=== PATIENT | male | born 1990 ===

== ENCOUNTER 2021-08-03 11:03 | Outpatient (REF) | payer SELFPAY ==
[2021-08-03 11:33] LABS: Binax Now Covid-19 Ag Negative (Negative)
[2021-08-03 11:34] LABS: Binax Internal Control QC Valid; Binax Lot number: 9864
== END 2021-08-03 11:04 | disposition home or self-care (01) ==
LOC: HO.LAB 11:03
PROVIDERS: Visit Provider Internal Medicine
DX: U07.1 COVID-19 (principal)
CPT/HCPCS: 36415; C9803

== ENCOUNTER 2022-11-05 08:03 | Outpatient (REF) | payer OTHER, SELFPAY ==
[2022-11-05 11:12] LABS: MANUAL DIFF FLAG NO
[2022-11-05 11:13] LABS: Appearance Urine Turbid; Color Urine Yellow; Glucose Urine UA Negative (Negative); Leukocyte Esterase Urine Negative (Negative); Nitrite Urine Negative (Negative); PH 5.5 (5.0-9.0); Specific Gravity - Urine 1.025 (1.005-1.025); Urine Blood Negative (Negative); Urine Ketones Negative (Negative); Urine Protein Negative (Neg-Trace)
[2022-11-05 11:43] LABS: Basophils Absolute Auto 0.1 X10*3/uL (0.0-0.2); Basophils Percent Auto 0.7 % (0-2); Eosinophils Absolute Auto 0.3 X10*3/uL (0.0-0.4); Eosinophils Percent Auto 3.3 % (0-4); Hematocrit 43.7 % (42.0-52.0); Hemoglobin 15.4 g/dl (14.0-18.0); Imm Gran Abs Auto 0.03 X10*3/uL (0.00-0.03); Imm Gran Pct Auto 0.4 % (0.0-0.4); Lymphocytes Absolute Auto 3.2 X10*3/uL (1.2-4.9); Lymphocytes Percent Auto 41.9 % (20-40); Mean Corpuscular HGB Conc 35.2 g/dl (31.0-36.0); Mean Corpuscular Hemoglobin 29.4 pg (27.0-33.0); Mean Corpuscular Volume 83.6 fL (80.0-98.0); Mean Platelet Volume 11.5 fL (9.4-12.4); Monocytes Absolute Auto 0.5 X10*3/uL (0.1-1.2); Monocytes Percent Auto 6.4 % (2-11); Neutrophils Absolute Auto 3.6 x10*3/uL (2.0-8.3); Neutrophils Percent Auto 47.3 % (45-73); Platelet Count 231 X10*3/uL (160-400); Red Blood Count 5.23 X10*6/uL (4.60-5.80); Red Cell Distribution Width 12.6 % (11.0-16.0); White Blood Count 7.6 X10*3/uL (4.8-10.8)
[2022-11-05 12:03] LABS: Alanine Aminotransferase 22 U/L (0-40); Albumin Level 4.5 g/dL (3.5-5.0); Alkaline Phosphatase 64 U/L (39-117); Anion Gap 11 (12-20); Aspartate Amino Transferase 22 U/L (5-37); Bilirubin Total 0.6 mg/dL (0.0-1.0); Blood Urea Nitrogen 17 mg/dL (9-16); Calcium 9.5 mg/dL (8.4-10.2); Carbon Dioxide 26 mmol/L (22-29); Chloride 106 mmol/L (96-108); Cholesterol 183 mg/dL; Estimated Glomerular Filt Rate > 60; Glucose Fasting 91 mg/dL (60-99); HDL Cholesterol 29 mg/dL; LDL Cholesterol Calculated 131 mg/dl; Potassium 4.2 mmol/L (3.3-5.1); Sodium 139 mmol/L (135-145); TSH reflex Free T4 1.03 uIU/mL (0.32-4.0); Total Protein 7.3 g/dL (6.5-8.0); Triglycerides 118 mg/dL
[2022-11-05 12:05] LABS: HIV AB/AG Nonreactive (Nonreactive); HIV Num 1 0.09 S/CO (0.00-0.99)
[2022-11-05 12:06] LABS: Syphilis Screen Nonreactive (Nonreactive)
[2022-11-05 14:23] LABS: CT PCR NOT DETECTED (Not Detect.); NG PCR NOT DETECTED (Not Detect.)
== END 2022-11-05 08:04 | disposition home or self-care (01) ==
LOC: HO.HMGCLDS 08:03
PROVIDERS: PCP Nurse Practitioner Family; Visit Provider Nurse Practitioner Family
DX: Z00.00 Encounter for general adult medical examination without abnormal findings (principal); Z20.2 Contact with and (suspected) exposure to infections with a predominantly sexual mode of transmission
CPT/HCPCS: 0353U; 80053; 80061; 81003; 84443; 85025; 86780; 87389

== ENCOUNTER 2023-06-20 15:30 | Emergency (ER) | payer OTHER, SELFPAY ==
--- NOTE | ~2023-06-20 | CT_ITS ---
EXAMINATION: CT HEAD WITHOUT CONTRAST CLINICAL INFORMATION: Head strike. Dizziness COMPARISON: None available. TECHNIQUE: Contiguous axial imaging was performed from the skull base to vertex without intravenous administration of contrast. This CT examination was performed using dose optimization techniques as appropriate, variously including the following: *Automated exposure control *Adjustment of mA and/or kV according to patient size (this includes techniques or standardized protocols for targeted exams where dose is matched to indication/reason for exam; i.e. extremities or head) *Use of iterative reconstruction technique DLP: 835 mGy-cm FINDINGS: No intracranial hemorrhage, tumors or acute infarcts noted. The ventricles and sulci are normal in size and configuration. No focal parenchymal lesions of the brain or abnormal extra-axial fluid collections visualized. The orbits and globes are normal in appearance. No significant opacification of the visualized paranasal sinuses, mastoid air cells and middle ear cavities. CT/CT head/brain wo IV con IMPRESSION: Normal unenhanced CT the head.
[2023-06-20 15:41] VITALS: BP 200/86; PULSE 88; RESP 16; TEMP 36.8; O2SAT 96; BMI 35.8
--- NOTE | 2023-06-20 15:47 | ED_ITS ---
HPI - Head Injury General Chief complaint: Head Injury Stated complaint: ?concussion Time Seen by Provider: 06/20/23 16:18 Source: patient Mode of arrival: ambulatory Limitations: no limitations History of Present Illness HPI Narrative: 32 year old male with no significant pmhx presents to the ED today with complaint of intermittent dizziness x2 days. States [place] was at a water park when he slipped out of an inner tube while going down a water slide. Does not recall head strike or LOC. After getting out of the pool he began feeling dizzy, nauseous and endorses one episode of vomiting. At the time reported 7/10 SAINI, which resolved later that night. Now endorses intermittent episodes of dizziness lasting only a few seconds, exacerbated by sudden head turns/ movements. Describes this as a room spinning sensation. Denies dizziness with position changes. Denies any symptoms at presents. Denies fever, chills, vision changes, dizziness, neck pain, chest pain, SOB, N/V, abd pain, LE pain/swelling. Denies recent travel or long car rides. Denies known sick contacts. Related Data Home Medications Medication Instructions Recorded Confirmed ibuprofen 800 mg tablet (IBU) 800 mg PO Q8H 11/04/22 11/04/22 Previous Rx's Medication Instructions Recorded meclizine 25 mg tablet 25 mg PO DAILY PRN dizziness #20 06/20/23 tabs Allergies Allergy/AdvReac Type Severity Reaction Status Date / Time No Known Allergies Allergy Verified 06/20/23 15:40 Review of Systems Review of Systems: Constitutional: No fever, chills, fatigue, night sweats, weight changes ENT/Mouth: No ear pain, hearing loss, nasal congestion, sinus pain, rhinorrhea, sore throat Eyes: No eye pain, swelling, redness, vision changes, discharge Cardio: No chest pain, palpitations, [place], orthopnea, peripheral edema Pulm: No SOB, cough, sputum, wheezing, dyspnea, hemoptysis GI: No nausea, vomiting, hematemesis, abdominal pain, diarrhea, constipation, hematochezia, melena : No irregular bleeding, dysuria, frequency, urgency, hesitancy, hematuria, flank pain, urinary flow changes, urinary incontinence or retention MSK: No back pain, neck pain, joint pain, myalgias Skin: No lesions, rashes Neuro: No weakness, numbness, paresthesias, LOC, dizziness, headache All other systems reviewed and are negative. [facility] Past Medical History Attestation statement: The following information was validated with the patient. Source: old records reviewed and nursing notes reviewed Social History Social History Housing: House Patient Tobacco Use Status: Never used Tobacco e-Cigarette/Vaping Use: Never Used Second Hand Smoke Exposure: Yes Advance Directives: No Advance Directives Information Provided: No service: No Current occupational status: employed Current occupation: haul truck driver for [employer] Current occupational exposures/hazards: No Cognitive needs: No Hearing needs: No Vision needs: No Physical Exam Vital Signs: Vital Signs: Last Vital Signs Temp 98.2 F 06/20/23 15:41 Pulse 83 06/20/23 16:46 Resp 16 06/20/23 16:46 BP 143/73 H 06/20/23 16:46 Pulse Ox 98 06/20/23 16:46 O2 Del Method Room Air 06/20/23 16:46 BMI result Body Mass Index 35.8 VSS Const: General: cooperative, healthy appearing, comfortable, no acute distress, alert and awake Nutritional Appearance: average body habitus Orientation/consciousness: patient oriented x3 Limitations: no limitations HEENT: Head: Yes normal to inspection, Yes No palpable skull fracture present, Yes normocephalic, Yes atraumatic, No Dockery's sign, No raccoon eyes and No periorbital ecchymosis Ears: hearing grossly normal bilaterally, external ears normal, TM's normal bilaterally and EAC's normal General nose exam: Normal external nose present and Normal septum present Face and sinus: Yes normal facial exam Mouth: moist mucous membranes Eyes: General: appearance normal, both eyes and all related structures Conjunctivae: conjunctivae normal Sclerae: sclerae normal Pupils: Equal, round and reactive pupils present EOM: EOMs intact bilaterally Neck: Neck: Yes normal visual inspection and Yes full ROM Resp: Effort & Inspection: normal respiratory effort and able to speak in complete sentences Auscultation: clear to auscultation bilaterally Cardio: Rate: regular rate Rhythm: regular rhythm Peripheral pulses: radial pulses present Back/Spine/Pelvis: Other: No midline spinous tenderness. No paraspinal muscle tenderness. No step off deformity. Skin: General skin exam: no rashes or lesions noted Neuro: General: patient oriented x3, gait normal and moves all extremities Cranial nerves: Yes CN's II-XII intact bilaterally, Yes Equal, round and reactive pupils present and Yes Nystagmus not present Coordination: [id number] test normal, [id number] test normal and Normal rapid alternating movements of the distal upper extremity present (Neuro) Pupils: Normal pupillary reactivity/response: bilateral Extrem: General: Yes no calf tenderness and Yes normal gait Course Course Course Narrative: This is an RME: Additional HPI, ROS, PE not included below will be deferred to primary provider. Today for 32-year-old male presenting to the emergency department with complaints of dizziness x 2 days. Patient states that he was at [facility] going on multiple slides and rides. He states that he fell off a tube he was sitting on in a funnel water ride. He is unsure if he hit his head. He states that he has had dizziness since. He states that he has had multiple episodes of nausea and vomiting. Also endorsing head pain. No obvious neurologic deficits on examination. Plan: CT head. Reevaluation(s) Reevaluation #1: CT head/brain without bleed or mass > patient asymptomatic in ED and has had no episodes of dizziness. Declining pain medications or zofran at this time. Symptoms consistent with concussion vs vertigo. Will give patient one dose of meclizine in ED and send rx to pharmacy for him to take as needed for dizziness. Informed patient of CT results. Advised him to stay hydrated throughout the day, get lots of rest, and to follow up with his PCP this week regarding visit. Discussed strict return precautions. All questions answered at this time. Patient is agreeable with disposition and stable for discharge. Medications Administered Discontinued Medications Generic Name Dose Route Start Last Admin Trade Name Freq PRN Reason Stop Dose Admin Meclizine HCl 25 mg 06/20/23 17:17 06/20/23 17:52 Meclizine Hcl 25 Mg Tablet PO 06/20/23 17:18 25 mg ONCE ONE Administration Medical Decision Making Medical Decision Making MDM Narrative: 32 year old male with no significant pmhx presents to the ED today with complaint of intermittent dizziness x2 days. VSS. Abefrile. Patient is nontoxic appearing and in NAD. No focal neruo deficits. Cerebellum intact. No nystamus. RRR. Lungs CTA b/l. No calf tenderness b/l. No midline spinous or paraspinal mm tenderness. No step off deformity. Ambulating with steady gait. Clinical concern for concussion vs vertigo. Unlikely orthostatic hypotension, dehydration, ICH, CVA/TIA, cerebellar stroke, dissection. Plan for CT head/brain and re- evaluation. Differential Diagnosis Differential Diagnoses: The differential diagnosis associated with the presentation includes As above. Admission/Observation Not indicated. Independent Interpretation I performed an independent interpretation of an: CT Scan Interpretation: CT head/brain without bleed or mass, agree with radiologist's interpretation. Radiology Impression Discussion of test interpretation with radiology: I have reviewed the radiologist's reading. Radiologist Impression: CT head/brain wo IV con IMPRESSION: Normal unenhanced CT the head. External Record Review External record reviewed: Inpatient record Prescription Management I considered prescription management with: Other (antiemetic) Critical Care Time Critical Care Time Critical Care Time: No Discharge Plan Discharge Clinical Impression: Dizziness Patient Disposition: Home, Self-Care Instructions: Vertigo (ED), Dizziness (ED) Additional Instructions: The CT of your head/brain did not show acute bleed or mass. Your symptoms may be the result of vertigo. You tolerated a dose of meclizine in ED today. You may take this whenever you begin to feel dizzy. Please follow up with your PCP if symptoms persit. If symptoms worsen please return to the ED. In the case of an emergency call 911. Prescriptions: New meclizine 25 mg tablet 25 mg PO DAILY PRN (Reason: dizziness) Qty: 20 0RF No Action ibuprofen [IBU] 800 mg tablet 800 mg PO Q8H Referrals: Luis Fernando Ruffin, [facility] [employer] [facility] [Primary Care Provider] - Stand Alone Forms: Work/School Release Interventions: ED Discharge Assessment Last Done: 06/20/23 17:54 Discharge Date/Time: 06/20/23 17:55
[2023-06-20 16:46] VITALS: BP 143/73; PULSE 83; RESP 16; O2SAT 98
[2023-06-20] MEDS: Meclizine HCl 25 MG TABLET PO (17:52)
== END 2023-06-20 17:55 | disposition home or self-care (01) ==
PROVIDERS: Emergency Provider Student in an Organized Health Care Education/Training Program; PCP Nurse Practitioner Family
DX: R42 Dizziness and giddiness (principal)
CPT/HCPCS: 70450; 99283; 99284

== ENCOUNTER 2023-11-28 08:09 | Outpatient (REF) | payer OTHER, SELFPAY ==
[2023-11-28 11:33] LABS: MANUAL DIFF FLAG NO
[2023-11-28 11:51] LABS: Basophils Percent Auto 0.5 % (0-2); Eosinophils Absolute Auto 0.4 X10*3/uL (0.0-0.4); Eosinophils Percent Auto 4.3 % (0-4); Hematocrit 44.1 % (42.0-52.0); Hemoglobin 15.3 g/dl (14.0-18.0); Imm Gran Abs Auto 0.03 X10*3/uL (0.00-0.03); Imm Gran Pct Auto 0.3 % (0.0-0.4); Lymphocytes Absolute Auto 3.1 X10*3/uL (1.2-4.9); Lymphocytes Percent Auto 34.8 % (20-40); Mean Corpuscular HGB Conc 34.7 g/dl (31.0-36.0); Mean Corpuscular Hemoglobin 29.1 pg (27.0-33.0); Mean Platelet Volume 11.6 fL (9.4-12.4); Monocytes Absolute Auto 0.8 X10*3/uL (0.1-1.2); Monocytes Percent Auto 9.4 % (2-11); Neutrophils Absolute Auto 4.5 x10*3/uL (2.0-8.3); Neutrophils Percent Auto 50.7 % (45-73); Platelet Count 236 X10*3/uL (160-400); Red Blood Count 5.25 X10*6/uL (4.60-5.80); Red Cell Distribution Width 13.2 % (11.0-16.0); White Blood Count 8.8 X10*3/uL (4.8-10.8)
[2023-11-28 11:54] LABS: Appearance Urine Turbid; Color Urine Dark Yellow; Glucose Urine UA Negative (Negative); Leukocyte Esterase Urine Negative (Negative); Nitrite Urine Negative (Negative); PH 5.5 (5.0-9.0); Specific Gravity - Urine >= 1.030 (1.005-1.025); Urine Blood Negative (Negative); Urine Ketones Trace mg/dL (Negative); Urine Protein Negative (Neg-Trace)
[2023-11-28 12:25] LABS: Alanine Aminotransferase 43 U/L (0-40); Albumin Level 4.4 g/dL (3.5-5.0); Alkaline Phosphatase 65 U/L (39-117); Anion Gap 12 (12-20); Aspartate Amino Transferase 29 U/L (5-37); Bilirubin Total 0.7 mg/dL (0.0-1.0); Blood Urea Nitrogen 14 mg/dL (9-16); Calcium 9.4 mg/dL (8.4-10.2); Carbon Dioxide 27 mmol/L (22-29); Chloride 106 mmol/L (96-108); Cholesterol 164 mg/dL (<200); Estimated Glomerular Filt Rate > 60; Glucose Fasting 87 mg/dL (60-99); HDL Cholesterol 29 mg/dL (>40); LDL Cholesterol Calculated 113 mg/dL (<100); Potassium 3.9 mmol/L (3.3-5.1); Sodium 141 mmol/L (135-145); TSH reflex Free T4 1.32 uIU/mL (0.32-4.0); Total Protein 7.6 g/dL (6.5-8.0); Triglycerides 110 mg/dL (<150)
== END 2023-11-28 08:10 | disposition home or self-care (01) ==
LOC: HO.HMGCLDS 08:09
PROVIDERS: PCP Nurse Practitioner Family; Visit Provider Nurse Practitioner Family
DX: Z00.00 Encounter for general adult medical examination without abnormal findings (principal)
CPT/HCPCS: 36415; 80053; 80061; 81003; 84443; 85025

== ENCOUNTER 2023-11-30 15:59 | Outpatient (AMB) | payer OTHER, SELFPAY ==
--- NOTE | 2023-11-30 16:02 | A.OFFPC_ITS ---
Vital Signs 11/30/23 16:06 Height 6 ft Weight 269 lb BMI 36.5 BP 124/82 Blood Pressure Location Rt brachial Position Sitting Pulse 86 Pulse Source Pulse Oximeter Pulse Oximetry (%) 98 Oxygen Delivery Method Room Air Intake Visit Reasons: PE with labs Intake Note: Patient here for physical exam. Allergies No Known Allergies Allergy (Verified 11/30/23 16:07) Medication List - Last Reviewed 11/30/23 by OSWALDO Felipe ibuprofen (IBU) 800 mg PO Q8H Tobacco use date assessed: 11/30/23 Dental Screening Dental Screen Date: 11/30/23 Did you have a dental visit in the last 12 months?: Yes Did you have a dental problem in the last 6 months where you did not have access to dental care?: No Was dental information given to patient?: Patient has dentist HPI PE with labs HPI Details Here for a PE. Labs already drawn. liver enzyme elevated, will get a abd US and hepatitis screen. Allergies: pt reports getting wheezing, especially around cats. He denies any s/s of anaphylaxis, will order PFT testing and send a albuterol inhaler (educated on use). [facility] Social History Housing: House Patient Tobacco Use Status: Never used Tobacco e-Cigarette/Vaping Use: Never Used Second Hand Smoke Exposure: Yes service: No Current occupational status: employed Current occupation: local combination truck driver for [employer] Current occupational exposures/hazards: No Cognitive needs: No Hearing needs: No Vision needs: No Questionnaire PHQ-9 Over the last 2 weeks, how often have you been bothered by any of the following problems? 81425 - PHQ-9 Billing: Patient declined-do not bill Source: Developed by Drs. Usman Washington, Shannon Mejía, Leonard Payton and colleagues, with an educational mahad from [employer]. Thrive Questionnaire Date Thrive assessed: 11/04/22 AUDIT C Alcohol Use Questionnaire (AUDIT-C) 1. How often do you have a drink containing alcohol?: Never 3. How often do you have six or more drinks on one occasion?: Never Total Score: 0 Score Reviewed/Action Taken: No PURA-7 AMB Questionnaire PURA-7 Date PURA - 7 assessed: 11/04/22 Source: Developed by Drs. Usman Washington, Shannon Mejía, Leonard Payton and colleagues, with an educational mahad from [employer]. PURA-7 Assessment Billing PURA-7 Assessment Tool: pt declined-do not bill Review of Systems Const Denies chills and Denies fever(s) Eyes Denies blurry vision ENT Denies vertigo, Denies dizziness and Denies sore throat Card Denies chest pain at rest, Denies chest pain with activity, Denies diaphoresis, Denies dyspnea and Denies dyspnea on exertion Resp Denies cough, Denies dyspnea, Denies dyspnea on exertion and Denies wheezing GI Denies abdominal pain, Denies melena, Denies hematochezia, Denies constipation, Denies diarrhea and Denies loose stools Denies hematuria Musc Denies numbness and Denies tingling Skin/Breast Denies lesions Neuro Denies vertigo, Denies dizziness, Denies numbness and Denies tingling Psych Denies anxiety, Denies depression, Denies homicidal ideation, Denies suicidal ideation and Denies other (substance abuse) Aller/Immun Denies wheezing Physical exam (Primary Care) BMI result Body Mass Index 36.5 Tobacco/Smoking Status: Tobacco use Status Tobacco use date assessed 11/04/22 11/30/23 16:04 Patient Tobacco Use Status Never used Tobacco 11/30/23 16:04 e-Cigarette/Vaping Use Never Used 11/30/23 16:04 Thrive Assessment: Date of Thrive Assessment Date Thrive assessed 11/04/22 11/30/23 16:04 Const General: cooperative Nutritional Appearance: well nourished and obese Orientation/consciousness: patient oriented x3 HENMT Head: Yes normal to inspection, Yes normocephalic and Yes atraumatic Ears: TM normal on the right and TM normal on the left Eyes General: appearance normal, both eyes and all related structures Alignment and Position: alignment normal and position normal Neck Neck: Yes normal visual inspection and Yes no lymphadenopathy Resp Effort & Inspection: normal respiratory effort Auscultation: clear to auscultation bilaterally and wheezes (RUL (very faint)) Cardio Rate: regular rate Rhythm: regular rhythm Heart sounds: S1 normal heart sound present, S2 normal heart sound present and no murmurs GI Palpation (GI): Soft to palpation and nontender Auscultation: normal bowel sounds Male General Exam: Yes normal external exam Penis: normal penis Scrotum: scrotum normal, testes descended bilaterally and no inguinal hernias Testes: no testicular mass Skin Rashes: no rashes Neuro General: patient oriented x3, moves all extremities, no focal motor deficits and deep tendon reflexes 2+ bilaterally Romberg Test: Negative Extrem Right lower extremity: no edema Left lower extremity: no edema Psych Affect: normal affect Attitude: cooperative Thought process: Normal thought process present Assessment and Plan Assessment & Plan (1) Physical exam: Code(s): Z00.00 - Encounter for general adult medical examination without abnormal findings Plan: labs already drawn (2) Elevated liver enzymes: Code(s): R74.8 - Abnormal levels of other serum enzymes Plan: hepatitis screen, abd US, educated on proper diet and weight loss (3) Allergies: Code(s): T78.40XA - Allergy, unspecified, initial encounter Plan: may start cetirizine (4) Wheezing: Code(s): R06.2 - Wheezing Plan: PFT ordered, labs ordered, albuterol sent (5) Vasectomy evaluation: Code(s): Z30.09 - Encounter for other general counseling and advice on contraception Plan: has 4 children, will refer as requested Orders: Orders US abdomen complete Today R74.8 - Abnormal levels of other serum enzymes Hepatitis A,B,C Profile Today R74.8 - Abnormal levels of other serum enzymes Immunoglobulins,IgG IgA IgM Today T78.40XA - Allergy, unspecified, initial encounter PFT pulmonary function test Today R06.2 - Wheezing Resp Allergy Profile Region I Today R06.2 - Wheezing Immunoglobulin G Subclasses Today R06.2 - Wheezing Rast Allergen Today T78.40XA - Allergy, unspecified, initial encounter Complete Blood Count Auto Diff Today T78.40XA - Allergy, unspecified, initial encounter Referrals Urology Referral Z30.09 - Encounter for other general counseling and advice on contraception Medications: New albuterol sulfate 90 mcg/actuation 2 puffs inhalation Q6H PRN 8.5 grams 0RF shortness of breath or wheezing Coding Level of Care Code Est Pt Prev Care 18-39y(30553) Diagnoses Physical exam Z00.00 Elevated liver enzymes R74.8 Allergies T78.40XA Wheezing R06.2 Vasectomy evaluation Z30.09
[2023-11-30 16:06] VITALS: BP 124/82; PULSE 86; O2SAT 98; BMI 36.5
== END 2023-11-30 16:32 | disposition home or self-care (01) ==
PROVIDERS: PCP Nurse Practitioner Family; Visit Provider Nurse Practitioner Family
DX: Z00.00 Encounter for general adult medical examination without abnormal findings (principal); R74.8 Abnormal levels of other serum enzymes; T78.40XA Allergy, unspecified, initial encounter; R06.2 Wheezing; Z30.09 Encounter for other general counseling and advice on contraception
CPT/HCPCS: 99395

== ENCOUNTER 2023-12-07 13:46 | Outpatient (REF) | payer OTHER, SELFPAY ==
[2023-12-07 16:28] LABS: MANUAL DIFF FLAG NO
[2023-12-07 16:31] LABS: Basophils Absolute Auto 0.1 X10*3/uL (0.0-0.2); Basophils Percent Auto 0.6 % (0-2); Eosinophils Absolute Auto 0.5 X10*3/uL (0.0-0.4); Eosinophils Percent Auto 4.4 % (0-4); Hematocrit 45.9 % (42.0-52.0); Hemoglobin 16.6 g/dl (14.0-18.0); Imm Gran Abs Auto 0.05 X10*3/uL (0.00-0.03); Imm Gran Pct Auto 0.5 % (0.0-0.4); Lymphocytes Absolute Auto 3.9 X10*3/uL (1.2-4.9); Lymphocytes Percent Auto 37.1 % (20-40); Mean Corpuscular HGB Conc 36.2 g/dl (31.0-36.0); Mean Corpuscular Hemoglobin 30.6 pg (27.0-33.0); Mean Corpuscular Volume 84.5 fL (80.0-98.0); Mean Platelet Volume 11.3 fL (9.4-12.4); Monocytes Absolute Auto 0.7 X10*3/uL (0.1-1.2); Monocytes Percent Auto 6.9 % (2-11); Neutrophils Absolute Auto 5.3 x10*3/uL (2.0-8.3); Neutrophils Percent Auto 50.5 % (45-73); Platelet Count 267 X10*3/uL (160-400); Red Blood Count 5.43 X10*6/uL (4.60-5.80); Red Cell Distribution Width 12.9 % (11.0-16.0); White Blood Count 10.4 X10*3/uL (4.8-10.8)
[2023-12-08 04:26] LABS: HBc Num1 0.18 S/CO (0.00-0.79); HBsAGNum1 0.32 S/CO (0.00-0.99); Hepatitis B Core Antibody Nonreactive (Nonreactive); Hepatitis B Surface Antigen Negative (Negative); ~HepC Num1 0.18 S/CO (0.00-0.79); ~Hepatitis B Surface Antibody NONREACTIVE (Nonreactive); ~Hepatitis C Antibody Nonreactive (Nonreactive)
[2023-12-08 04:43] LABS: Hepatitis A Antibody IgM 0.12 Index (0-0.79); ~Hepatitis A Antibody IgM Nonreactive (Nonreactive)
[2023-12-08 14:58] LABS: Immunoglobulin G Subclass 1 884 mg/dL (382-929); Immunoglobulin G Subclass 2 292 mg/dL (241-700); Immunoglobulin G Subclass 3 205 mg/dL (22-178); Immunoglobulin G Subclass 4 82.2 mg/dL (4-86); Immunoglobulin G Total 1417 mg/dL (600-1640)
[2023-12-09 11:58] LABS: IgA 192 mg/dL (47-310); IgG 1547 mg/dL (600-1640); IgM 81 mg/dL (50-300)
[2023-12-12 06:54] LABS: Class Alternaria alternata 0; Class Aspergillus fumigatus 0/1; Class Bermuda Grass 3; Class Birch 2; Class Cat Dander 6; Class Cladosporium herbarum 0; Class Cockroach 2; Class Common Ragweed 3; Class Cottonwood 2; Class Derm. pterony 4; Class Dermatophagoides farinae 3; Class Dog Dander 5; Class Elm 2; Class Maple Box Elder 2; Class Mountain Cedar 2; Class Mouse Urine Protein 0/1; Class Mugwort 2; Class Oak 2; Class Penicillium crysogenum 0; Class Rough Pigweed 2; Class Sheep Sorrel 2; Class Sycamore 2; Class Timothy Grass 3; Class Walnut Tree 2; Class White Ash 2; Class White Mulberry 2; E001 - IgE Cat Dander >100 kU/L; E072-IgE Mouse Urine 0.14 kU/L; G006 - IgE Timothy Grass 8.28 kU/L; I006-IgE Cockroach, German 0.78 kU/L; Immunoglobulin E 765 kU/L (<OR=114); M001 IgE Penicillium chrysogen <0.10 kU/L; M002 - IgE Cladosporium herbar <0.10 kU/L; M006 - IgE Alternaria alternat <0.10 kU/L; T003 IgE Common Silver Birch 2.48 kU/L; T006 - IgE Cedar, Mountain 1.04 kU/L; T007 - IgE Oak, White 2.07 kU/L; T008 IgE Elm, American 1.32 kU/L; T010 - IgE Walnut 1.58 kU/L; T011 - IgE Maple Leaf Sycamore 1.25 kU/L; T015 - IgE Ash, White 1.98 kU/L; T070 - IgE White Mulberry 0.91 kU/L; W006 - IgE Mugwort 1.18 kU/L; W014 IgE Pigweed, Common 1.37 kU/L; W018 IgE Sheep Sorrel 1.53 kU/L
== END 2023-12-07 13:47 | disposition home or self-care (01) ==
LOC: HO.HMGCLDS 13:46
PROVIDERS: PCP Nurse Practitioner Family; Visit Provider Nurse Practitioner Family
DX: R06.2 Wheezing (principal); R74.8 Abnormal levels of other serum enzymes; T78.40XA Allergy, unspecified, initial encounter
CPT/HCPCS: 36415; 82784; 82785; 85025; 86003; 86704; 86706; 86709; 86803; 87340

== ENCOUNTER 2023-12-14 08:10 | Outpatient (REF) | payer OTHER, SELFPAY ==
--- NOTE | ~2023-12-14 | US_ITS ---
EXAMINATION: US ABDOMEN COMPLETE CLINICAL INFORMATION: Abnormal LFTs. COMPARISON: None available. TECHNIQUE: Real-time imaging of the abdominal viscera. FINDINGS: PANCREAS: Normal. ABDOMINAL AORTA: The mid segment of the abdominal aorta is obscured by bowel gas, but otherwise no evidence of aneurysm. INFERIOR VENA CAVA: Visualized portions are normal. LIVER: The liver is normal in size. The liver contour is normal. There is diffuse increased liver parenchymal echogenicity, consistent with hepatic steatosis. No focal hepatic lesion. There is no intrahepatic biliary duct dilatation seen. GALLBLADDER: Normal. The gallbladder is physiologically distended without evidence of stones, sludge, polyps, wall thickening or pericholecystic fluid. COMMON BILE DUCT: Normal in caliber measuring 0.3 cm in diameter. RIGHT KIDNEY: Normal. No hydronephrosis. No renal calculi or focal parenchymal lesions. The kidney measures 12.0 cm in maximum dimension. LEFT KIDNEY: Normal. No hydronephrosis. No renal calculi or focal parenchymal lesions. The kidney measures 12.1 cm in maximum dimension. SPLEEN: The spleen is upper limits of normal at 13.7 cm. FREE FLUID: None. US/US abdomen complete IMPRESSION: Hepatic steatosis. Borderline splenomegaly.
== END 2023-12-14 08:11 | disposition home or self-care (01) ==
LOC: HO.HMGCX 08:10
PROVIDERS: PCP Nurse Practitioner Family; Visit Provider Nurse Practitioner Family
DX: R74.8 Abnormal levels of other serum enzymes (principal)
CPT/HCPCS: 76700

== ENCOUNTER 2023-12-16 10:48 | Outpatient (AMB) | payer OTHER, SELFPAY ==
[2023-12-16 10:55] VITALS: BP 140/90; PULSE 71; TEMP 36.3; O2SAT 97; BMI 36.2
--- NOTE | 2023-12-16 10:55 | AM.OFFWIN_ITS ---
Intake Vital Signs 12/16/23 10:55 Height 6 ft Weight 267 lb BMI 36.2 BP 140/90 H Blood Pressure Location Lt brachial Position Sitting Pulse 71 Pulse Source Pulse Oximeter Temp 97.3 F Temp Source Temporal Artery Scan Pulse Oximetry (%) 97 Oxygen Delivery Method Room Air Intake Visit Reasons: EST/ sharp pain when breathing (lobby) Intake Note: pt is here today for sharp pain when breathing started yesterday Patient Tobacco Use Status: Never used Tobacco Allergies No Known Allergies Allergy (Verified 12/16/23 10:58) Do you need a note to return to daycare/school/sports/work: No HPI HPI Comments History of Present Illness Details Patient is a 33yo M who presents to office with cough He has been seen recently for ongoing allergiesx asthma He uses albuterol prn and last month saw PCP and was prescribed budesonide but has not filled it yet He never had to use inhalers in past; 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 He takes breaks in the afternoon and walks around No calf cramping, swelling or leg pain He denies medicine for it No SOB at rest or palpitations. States his asthma symptoms arent bothersome now [facility] Social History Housing: House Patient Tobacco Use Status: Never used Tobacco e-Cigarette/Vaping Use: Never Used Second Hand Smoke Exposure: Yes service: No Current occupational status: employed Current occupation: regional truck driver for [employer] Current occupational exposures/hazards: No Cognitive needs: No Hearing needs: No Vision needs: No Review of Systems Const Denies body aches, Denies chills and Denies fever(s) Eyes Denies blurry vision ENT Denies dizziness, Denies otalgia, Denies nasal congestion and Denies sore throat Card Reports chest pain (only with breathing deep breath. No radiation), Denies chest pain at rest, Denies syncope, Denies rapid heart rate, Denies claudication, Denies leg edema and Reports dyspnea on exertion (ongoing and unchanged as of recently) Resp Denies hemoptysis, Reports pain on inspiration, Denies pain with cough and Reports dyspnea on exertion (ongoing and unchanged as of recently) GI Denies abdominal pain Neuro Denies dizziness and Denies syncope Physical Exam Vital Signs: Last Vital Signs Temp 97.3 F 12/16/23 10:55 Pulse 71 12/16/23 10:55 BP 140/90 H 12/16/23 10:55 Pulse Ox 97 12/16/23 10:55 Oxygen Delivery Method Room Air 12/16/23 10:55 BMI result Body Mass Index 36.2 General: Non-toxic, NAD. Speaking full sentences. Skin: Warm dry throughout Eye: EOMI HENT: Bilateral canals clear. TM non-erythematous, non-bulging. No TM perforation or hemotympanum noted. Respiratory: CTA bilaterally. No wheezes, rales or rhonchi Cardiac: RRR. No murmur. No leg edema; equal in size bilaterally MSK: Full ROM extremities. Neurology: A/O . No aphasia or facial droop. Gait without abnormality Psych: Good mood and affect Assessment & Plan Assessment & Plan (1) Chest tightness: Code(s): R07.89 - Other chest pain Plan: Patient seen and evaluated. EKG: first degree AV block, No Stemi. Sinus at 67bpm Chest xray: I viewed as negative PERC is 0. Patient and I had extensive discussion about chest discomfort s/s that warrant ER evaluation for further evaluation and management. Pt will monitor and is aw are EKG and chest xray showed no acute abnormality needing management but PA/PE etc was not ruled out in office. Note left for PCP to f/u with 1st degree AV block finding; I also let Luis Fernando know about this in office today Patient gave verbal understanding and had no additional questions or concerns at time of discharge All questions answered (2) First degree AV block: Code(s): I44.0 - Atrioventricular block, first degree Plan: Will f/u with PCP; PCP is aware Orders: Orders XR chest 2V Today R07.89 - Other chest pain AMB EKG-In Office Today R07.89 - Other chest pain Coding Level of Care Code Est Pt Level 4 (29417) Diagnoses Chest tightness R07.89 First degree AV block I44.0
== END 2023-12-16 12:01 | disposition home or self-care (01) ==
PROVIDERS: PCP Nurse Practitioner Family; Visit Provider Physician Assistant
DX: R07.89 Other chest pain (principal); I44.0 Atrioventricular block, first degree
CPT/HCPCS: 93000; 99214

== ENCOUNTER 2023-12-16 11:17 | Outpatient (REF) | payer OTHER, SELFPAY ==
--- NOTE | ~2023-12-16 | XR_ITS ---
EXAMINATION: XR CHEST CLINICAL INFORMATION: Chest pain COMPARISON: None available. TECHNIQUE: 2 views of the chest were obtained. FINDINGS: Lungs are well-inflated and clear. Trachea is midline in position. No interstitial disease, consolidation or mass. No pleural effusion or pneumothorax. Cardiac silhouette and pulmonary vessels are normal in size. The mediastinum and kathleen have normal contour. The visualized bones and upper abdomen are unremarkable. XR/XR chest 2V IMPRESSION: Lungs are normal. No acute cardiopulmonary abnormality.
== END 2023-12-16 11:18 | disposition home or self-care (01) ==
LOC: HO.HMGCX 11:17
PROVIDERS: Visit Provider Physician Assistant
DX: R07.89 Other chest pain (principal)
CPT/HCPCS: 71046

== ENCOUNTER 2024-01-21 14:55 | Outpatient (AMB) | payer OTHER, SELFPAY ==
--- NOTE | 2024-01-21 14:58 | A.OFFVIS_ITS ---
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 Ruffin. He presents to the office today for - vasectomy evaluation Vasectomy evaluation The patient presents for vasectomy consultation.? He is currently single however with his partner He has fathered -?3 children, with a single partner however has a child on the way with a 2nd partner she is due the end of March. The youngest child is - 3 years old His partner is aware and permissive for a vasectomy Current form of control is rhythm. Current employment is box truck washer The vasectomy may be complicated due to a history of no complicating issues. Patient education has been provided via AUA video, via printed information, risks of failure, recovery time, bruising and potential pain syndrome have been stressed. Discussion today focused on the presence of vasectomy and the risks, benefits and alternatives that are available. Vasectomy as intended as a permanent form of control. Printed information and literature was provided to the omar t. Overall there is a one in 2500 failure rate. This can occur at any time after vasectomy. Risks were discussed highlighting hematoma, spermatocele, epididymal congestion, development of sperm antibodies, and development of chronic pain estimated between 1-5%. The procedure was reviewed in detail. Anatomical diagrams of the male genitalia were used to explain the location of the vas deferens. The vas deferens will be transected, the proximal end will be cauterized, a metal clip would be applied to separate the 2 vas deferens ends. It was explained the procedure will be done in the office and takes approximately 10-15 minutes. Less common problems that arise with vasectomy include hematoma, bleeding, allergic reaction to anesthetic, epididymal infection, epididymal congestion, scrotal discomfort, spermatic leak, spermatic granuloma and the possibility of antisperm antibodies. He understands these risks and wishes to proceed. Consent was signed at the office today. He also understands that it takes 12 weeks for sperm to fully clear the system. He will need to provide a semen sample at 12 weeks and if this is not clear a 2nd sample at 16 weeks. Medical clearance to stop using prot ection will only be provided if he satisfies published criteria for sperm clearance. [facility] Social History Housing: House Patient Tobacco Use Status: Never used Tobacco e-Cigarette/Vaping Use: Never Used Second Hand Smoke Exposure: Yes service: No Current occupational status: employed Current occupation: box truck washer for [employer] Current occupational exposures/hazards: No Cognitive needs: No Hearing needs: No Vision needs: No Review of Systems Const All systems reviewed & are unremarkable except as noted in HPI and below Physical Exam Const General: cooperative, healthy appearing, comfortable, no acute distress, well developed, alert and awake Nutritional Appearance: overweight Orientation/consciousness: patient oriented x3 Limitations: no limitations HEENT Head: Yes normal to inspection, Yes normocephalic and Yes atraumatic Ears: hearing grossly normal bilaterally Eyes General: appearance normal, both eyes and all related structures Neck Neck: Yes normal visual inspection and Yes trachea midline Chest Chest palpation & inspection: normal inspection of the chest Resp Effort & Inspection: normal respiratory effort and able to speak in complete sentences Cardio Rate: regular rate GI Inspection: Yes normal to inspection General: Yes no CVA tenderness Penis: normal penis Meatus: meatus normal Scrotum: scrotum normal Testes: Testes normal Back/Spine/Pelvis Back: no CVA tenderness Skin General skin exam: no rashes or lesions noted Neuro General: patient oriented x3 Extrem General: Yes normal to inspection Psych Appearance: grossly normal and well kempt Mental Status: mental status grossly normal Speech and movement: Normal speech and movement present and Clear speech present Affect: normal affect Attitude: cooperative Thought process: Normal thought process present Thought content: Normal thought content present Insight: Fair insight present (Psych) Judgement: Fair judgement present (Psych) Results AMB Urinalysis, Automated UA Leukoctes 0 Emilia/uL Last Edit by Darci Hughes on 01/21/24 15:19 UA Nitrite Negative Last Edit by Darci Hughes on 01/21/24 15:19 UA Urobilinogen 0.2 mg/dL Last Edit by Darci Hughes on 01/21/24 15:19 UA Protein 15 mg/dL Last Edit by [employer] Hughes on 01/21/24 15:19 UA pH 6.0 Last Edit by [employer] Hughes on 01/21/24 15:19 UA Blood 0 Julio/uL Last Edit by [employer] Hughes on 01/21/24 15:19 UA Specific Ruby 1.025 Last Edit by [employer] Hughes on 01/21/24 15:19 UA Ketone Negative Last Edit by [employer] Hughes on 01/21/24 15:19 UA Bilirubin 0 mg/dL Last Edit by [employer] Hughes on 01/21/24 15:19 UA Glucose 0 mg/dL Last Edit by [employer] Hughes on 01/21/24 15:19 Results Reviewed Results Reviewed: Laboratory Last Values Urine pH (Auto) 6.0 01/21/24 15:15 Specific Ruby (Auto) 1.025 01/21/24 15:15 Urine Protein (Auto) 15 mg/dL 01/21/24 15:15 Glucose (UA)(Auto) 0 mg/dL 01/21/24 15:15 Urine Ketones (Auto) Negative 01/21/24 15:15 Urine Blood (Auto) 0 Julio/uL 01/21/24 15:15 Urine Nitrite (Auto) Negative 01/21/24 15:15 Urine Bilirubin (Auto) 0 mg/dL 01/21/24 15:15 Urine Urobilinogen (Auto) 0.2 mg/dL 01/21/24 15:15 Leukocyte Esterase (Auto) 0 Emilia/uL 01/21/24 15:15 Assessment & Plan Assessment & Plan (1) Vasectomy evaluation: Code(s): Z30.09 - Encounter for other general counseling and advice on contraception Category: Medical (2) Anxiety about health: Code(s): R45.89 - Other symptoms and signs involving emotional state Category: Medical Plan Discussed at length vasectomy; as noted above. Consent obtained. All questions were answered. Discussed semen analysis in office verses fellows; information provided. Prescription provided; discussed specific instructions of bringing them to office day of procedure. Will schedule for in office vasectomy with Dr. Rasheed as discussed. Follow-up status post doctor's orders; or sooner with any issues, concerns, and or questions. Orders: Orders AMB Urinalysis Automated Today Z13.9 - Encounter for screening, unspecified Medications: New diazepam Take medication after arrival at office 2 mg PO BID PRN 2 tabs 0RF anxiety 1 day R45.89 - Other symptoms and signs involving emotional state acetaminophen-codeine 300-30 mg 1 tab PO Q8H 9 tabs 0RF 3 days R45.89 - Other symptoms and signs involving emotional state Patient Instructions: The patient had an opportunity to ask questions regarding the treatment plan. All questions were answered. Physical exam, labs, and imaging were discussed and reviewed in detail. As well as risks, benefits, and discussion of treatment choices. No major barriers to understanding were identified. The patient expressed understanding and agreement with the above treatment plan. The patient was made aware they should contact our office by phone for worsening of their current condition, the appearance of new symptoms, or with any questions or concerns. Compliance is encouraged with any medications and follow up testing that is ordered. It is a privilege to be allowed the opportunity to participate in? your urological care.? Again, if you have any questions or concerns If you have any questions or concerns please do not hesitate to contact me. The office is [phone]. This note is constructed using voice recognition software. While every effort has been made to ensure accuracy program developer errors may have been included. Yours sincerely, ADRIANA Zhang Coding Level of Care Code New Pt Level 4 (16336) Diagnoses Vasectomy evaluation Z30.09 Anxiety about health R45.89
== END 2024-01-21 15:33 | disposition home or self-care (01) ==
PROVIDERS: PCP Nurse Practitioner Family; Visit Provider Nurse Practitioner Family
DX: Z30.09 Encounter for other general counseling and advice on contraception (principal); R45.89 Other symptoms and signs involving emotional state; Z13.9 Encounter for screening, unspecified
CPT/HCPCS: 99204

== ENCOUNTER → 2024-01-21 14:55 | Outpatient (BNVA) | payer OTHER, SELFPAY | PROVIDERS: PCP Nurse Practitioner Family; Visit Provider Nurse Practitioner Family | DX: Z30.09 Encounter for other general counseling and advice on contraception (principal); F41.8 Other specified anxiety disorders | CPT/HCPCS: 81003 ==

== ENCOUNTER 2024-01-28 15:41 | Outpatient (AMB) | payer OTHER, SELFPAY ==
[2024-01-28 15:47] VITALS: BP 130/80; PULSE 74; O2SAT 97; BMI 36.0
--- NOTE | 2024-01-28 15:47 | A.OFFVIS_ITS ---
Vital Signs 01/28/24 15:47 Height 6 ft Weight 265 lb 10.512 oz BMI 36.0 BP 130/80 Blood Pressure Location Lt brachial Position Sitting Pulse 74 Pulse Source Pulse Oximeter Pulse Oximetry (%) 97 Oxygen Delivery Method Room Air Intake Visit Reasons: wheezing Intake Note: pt is here as new patient for a wheeze that happened while he was working with a bath room floor that had mold and exposure to cats caused this episode. , and no more wheezing since that episode. He does wheeze with exposure to both things.. 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 He has been referred because recently he has had few episodes of wheezing, and shortness of breath. For the past few years he has noticed that when he is exposed to cat on molds he gets wheezing episodes. He has his own domestic cat at home and exposure to that CAT does not cause intense wheezing. Recently he had visited his friend, who has a CT and also he was fixing the floor of the bathroom which had mold. He acute wheezing episode, had to go to the urgent care clinic, treated with albuterol updraft , and started on QVAR, as well as montelukast. He recovered fairly well. And since then he he has had no acute wheezing. He is referred for ongoing pulmonary management. In addition he was describing according to his girlfriend he does have some episodes at night with gasping like feeling quite frequently. He denies any daytime sleepiness. He is grossly obese, he is a long-distance otr flatbed company truck driver, but usually comes home in the evening. He has had no accidents recently. [facility] Medical History (Updated 01/28/24 @ 17:12 by Teodoro Saavedra MD) Gasping for breath Sleep apnea in adult Obesity (BMI 30-39.9) Social History Housing: House Patient Tobacco Use Status: Never used Tobacco e-Cigarette/Vaping Use: Never Used Second Hand Smoke Exposure: Yes service: No Current occupational status: employed Current occupation: otr flatbed company truck driver for [employer] Current occupational exposures/hazards: No Cognitive needs: No Hearing needs: No Vision needs: No Review of Systems Const All systems reviewed & are unremarkable except as noted in HPI and below Eyes Reports no additional complaints ENT Reports no additional complaints Card Reports no additional complaints Resp Reports wheezing GI Reports as per HPI Reports no additional complaints Musc Reports no additional complaints Skin/Breast Reports system reviewed and no additional complaints, except as documented Neuro Reports no additional complaints Psych Reports no additional complaints Endo Reports no additional complaints Aller/Immun Reports wheezing and Reports other (History of allergy to molds and CT) Physical Exam Vital Signs: Last Vital Signs Pulse 74 01/28/24 15:47 BP 130/80 01/28/24 15:47 Pulse Ox 97 01/28/24 15:47 Oxygen Delivery Method Room Air 01/28/24 15:47 BMI result Body Mass Index 36.0 Const General: healthy appearing (Except for being overweight), comfortable, no acute distress, alert and awake Orientation/consciousness: patient oriented x3 HEENT Other: Patient has an obese neck, neck size 18 in. His oropharynx is crowded, Mallampati scale 4 Head: Yes normal to inspection General nose exam: No nasal polyps present and No nasal discharge present Face and sinus: Yes sinuses nontender Mouth: oropharynx abnormals (Narrow and crowded Mallampati scale 4) Throat: Yes posterior oropharynx normal Eyes General: appearance normal, both eyes and all related structures Neck Neck: Yes normal visual inspection, Yes no lymphadenopathy, Yes trachea midline, Yes no JVD and Yes other (Neck circumference 18 in) Thyroid: Thyroid normal Chest Chest palpation & inspection: normal inspection of the chest, normal palpation of entire chest wall and no tenderness Resp Other: Percussion note resonant, good breath sounds on both sides no, no active wheezes or rhonchi Effort & Inspection: normal respiratory effort Auscultation: clear to auscultation bilaterally, no rhonchi and no wheezes Cardio Palpation: normal PMI Rate: regular rate Rhythm: regular rhythm Heart sounds: no gallops and no murmurs Peripheral pulses: Peripheral pulses 2+ throughout GI Palpation (GI): Soft to palpation, nontender, No hepatosplenomegaly present and no masses Auscultation: normal bowel sounds Back/Spine/Pelvis Thoracic/Lumbar Spine: thoracic and lumbar spine normal to inspection Skin General skin exam: no rashes or lesions noted Neuro General: patient oriented x3 and no focal motor deficits Cranial nerves: Yes CN's II-XII intact bilaterally Extrem General: Yes normal to inspection, Yes no clubbing, cyanosis or edema and Yes no calf tenderness Psych Appearance: grossly normal and well kempt Speech and movement: Normal speech and movement present Assessment & Plan Assessment & Plan (1) Wheezing: Comment: He has had episodes of acute wheezing attacks after exposure to molds and CT. Consistent with allergic bronchial asthma. He is responding well to the current treatment with inhaled steroids and also use of montelukast. Code(s): R06.2 - Wheezing Category: Medical Plan: Continue montelukast 10 mg daily. Continue QVAR-40 2 puffs b.i.d.. Albuterol HFA 2 puffs Q 6 hours only p.r.n.. Avoid contact with the CAT or molds as much as possible. * on his next visit he should have spirometry complete PFT. (2) Obesity (BMI 30-39.9): Comment: Patient is moderately obese with BMI 36. Neck size is 18 in oropharynx is somewhat crowded. Code(s): E66.9 - Obesity, unspecified Category: Medical Plan: I explained to him that with his physical features he has a high risk for obstructive sleep apnea. (3) Sleep apnea in adult: Comment: This patient is obese, neck size 18 in. Mallampati class 4 History of gasping like episodes at night. These features are suggestive of obstructive sleep apnea Code(s): G47.30 - Sleep apnea, unspecified Category: Medical Plan: I explained to him that he should have screening for sleep apnea, especially because he is a otr flatbed company truck driver. He agrees to have a home-based sleep study which is being ordered. Orders: Orders RT home sleep study Today E66.9 - Obesity, unspecified, R06.89 - Other abnormalities of breathing Medications: New beclomethasone dipropionate 40 mcg/actuation (Qvar RediHaler) 2 inhalations inhalation Q12H 30 days 10.6 grams 3RF asthma Coding Level of Care Code New Pt Level 3 (94184) Diagnoses Wheezing R06.2 Obesity (BMI 30-39.9) E66.9 Sleep apnea in adult G47.30
== END 2024-01-28 16:28 | disposition home or self-care (01) ==
PROVIDERS: PCP Nurse Practitioner Family; Referring Provider Nurse Practitioner Family; Visit Provider Internal Medicine
DX: R06.2 Wheezing (principal); E66.9 Obesity, unspecified; G47.30 Sleep apnea, unspecified
CPT/HCPCS: 99203

== ENCOUNTER → 2024-01-28 15:41 | Outpatient (BNVA) | payer OTHER, SELFPAY | PROVIDERS: PCP Nurse Practitioner Family; Referring Provider Nurse Practitioner Family; Visit Provider Internal Medicine ==

== ENCOUNTER 2024-03-15 13:58 | Outpatient (AMB) | payer OTHER, SELFPAY ==
[2024-03-15 14:00] VITALS: BP 124/82; PULSE 83; BMI 35.6
--- NOTE | 2024-03-15 14:00 | A.OFFVIS_ITS ---
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 33-year-old male with prior history of CAD allergies, cardiac supposed to his friend ZAHRAA and he was were also working on a job with [employer] possibly mold exposure. He then developed gradually increasing difficulty in breathing and then developed chest tightness. He did then see urgent care at that time had EKG done which showed normal sinus rhythm with first-degree AV block with no acute ST T wave changes. Patient was then given bronchodilators and later confirmed to have inflammatory bronchospastic airway disease. Since then he has been prescribed albuterol as as montelukast and has done very well with it. He said now he is able to run without having any trouble breathing when he takes his inhalers. He has not had any recurrent chest tightness. Has no other cardiovascular risk aunts having a myocardial infarction age 48. He denies any smoking. No history of hypertension or diabetes. [facility] Medical History Gasping for breath Sleep apnea in adult Obesity (BMI 30-39.9) Social History Housing: House Patient Tobacco Use Status: Never used Tobacco e-Cigarette/Vaping Use: Never Used Second Hand Smoke Exposure: Yes service: No Current occupational status: employed Current occupation: class a truck driver for [employer] Current occupational exposures/hazards: No Cognitive needs: No Hearing needs: No Vision needs: No Review of Systems Const Denies chills, Denies daytime sleepiness, Denies fatigue, Denies fever(s), Denies frequent falls, Denies poor appetite, Denies snoring, Denies stops breathing during sleep, Denies weakness, Denies weight gain and Denies weight loss Eyes Denies loss of vision ENT Denies dizziness and Denies hearing loss Card Denies chest pain, Denies claudication, Denies leg edema, Denies lightheadedness, Denies palpitations, Denies dyspnea, Denies dyspnea on exertion and Denies orthopnea Resp Denies cough, Denies excessive phlegm production, Denies dyspnea, Denies dyspnea on exertion, Denies snoring and Denies wheezing GI Denies abdominal pain, Denies hematochezia, Denies change in bowel habits, Denies nausea and Denies vomiting Denies dysuria and Denies urinary frequency Musc Denies arthralgias, Denies muscle weakness, Denies numbness and Denies other (frequent falls) Skin/Breast Denies nail changes and Denies rash Neuro Denies Abnormal speech present, Denies dizziness, Denies frequent falls, Denies loss of vision, Denies memory loss, Denies numbness and Denies weakness Psych Denies depression and Denies memory loss Endo Denies fatigue and Denies palpitations Elijah/Lymph Reports easy bruising and Reports other (anemia) Aller/Immun Denies wheezing Physical Exam Vital Signs: Last Vital Signs Pulse 83 03/15/24 14:00 BP 124/82 03/15/24 14:00 BMI result Body Mass Index 35.6 Const General: cooperative, comfortable, no acute distress, well developed, alert, awake and Physically active Nutritional Appearance: average body habitus and well nourished Orientation/consciousness: patient oriented x3 Limitations: no limitations HEENT Head: Yes normocephalic and Yes atraumatic Neck Neck: Yes trachea midline, Yes supple and Yes no JVD Resp Effort & Inspection: normal respiratory effort Auscultation: clear to auscultation bilaterally Cardio Jugular venous distension: no JVD Palpation: normal PMI Rate: regular rate Rhythm: regular rhythm Heart sounds: S1 normal heart sound present, S2 normal heart sound present, no click, no gallops, no murmurs and no rubs GI Auscultation: normal bowel sounds Skin General skin exam: no rashes or lesions noted Neuro General: patient oriented x3 and no focal motor deficits Speech: No Abnormal speech present Extrem General: Yes no clubbing, cyanosis or edema Psych Appearance: grossly normal Assessment & Plan Assessment & Plan (1) Chest tightness: Code(s): R07.89 - Other chest pain Category: Medical Plan: Chest tightness and shortness of breath related to exposure to his urgent most likely suggestive of bronchospastic airway disease. This does not appear to be myocardial ischemia. Since then and starting inhaler therapy he has done extremely well and 2nd run without any restriction. His shortness of breath with running also has improved with the therapy. This seems to be all related to bronchospastic airway disease rather any cardiac issues. At this point time I do not think he requires any further cardiac workup unless his symptom pattern changes. First-degree AV block on EKG is not pathologic. If he continues to have difficult control pulmonary bronchospasm consider workup for sarcoidosis. Will follow up in the clinic if need be. Thank you for allowing me to partake in his care Medications: Changed From montelukast 10 mg PO BEDTIME 90 tabs 0RF To montelukast 10 mg PO BEDTIME PRN Coding Level of Care Code New Pt Level 3 (68586) Diagnoses Chest tightness R07.89
== END 2024-03-15 15:27 | disposition home or self-care (01) ==
PROVIDERS: PCP Nurse Practitioner Family; Visit Provider Internal Medicine Cardiovascular Disease
DX: R07.89 Other chest pain (principal)
CPT/HCPCS: 99203

== ENCOUNTER → 2024-03-15 13:58 | Outpatient (BNVA) | payer OTHER, SELFPAY | PROVIDERS: PCP Nurse Practitioner Family; Visit Provider Internal Medicine Cardiovascular Disease ==

== ENCOUNTER 2024-05-26 09:53 | Outpatient (AMB) | payer OTHER, SELFPAY ==
--- NOTE | 2024-05-26 10:36 | MHC.OFFWIV ---
Intake Vital Signs 05/26/24 10:43 Height 6 ft Weight 254 lb BMI 34.4 BP 122/80 Blood Pressure Location Rt brachial Position Sitting Pulse 79 Pulse Source Pulse Oximeter Pulse Oximetry (%) 97 Oxygen Delivery Method Room Air Intake Visit Reasons: EP Back pain, reinjured Intake Note: Patient here for lower back pain, states he previously had a injury to vertebrae and it feels the same again. Patient Tobacco Use Status: Never used Tobacco Allergies No Known Allergies Allergy (Verified 05/26/24 10:44) Do you need a note to return to daycare/school/sports/work: Yes HPI HPI Comments History of Present Illness Details Patient is a 33-year-old male complaining of low back pain for the last 3 days. He states he was lifting something heavy in his home and turning to the left when he felt pain in his low back on the right side.. He states this has happened before and all he remembers is it was a ?vertebrae injury ?he needed prescription medication and physical therapy to recover but he did fully recover. He states it feels exactly the same as it did when that happened. He denies any loss of control of his bladder or bowels, he denies any radiation down the back of his buttocks or legs. He states the back pain is worse when he tries to walk or stand or twist his core. He has not tried taking any medications to make himself feel better. He is having difficulty walking and is ambulating using a crutch. [facility] Medical History Gasping for breath Sleep apnea in adult Obesity (BMI 30-39.9) Social History Housing: House Patient Tobacco Use Status: Never used Tobacco e-Cigarette/Vaping Use: Never Used Second Hand Smoke Exposure: Yes service: No Current occupational status: employed Current occupation: heavy duty truck mechanic for [employer] Current occupational exposures/hazards: No Cognitive needs: No Hearing needs: No Vision needs: No Review of Systems Const All systems reviewed & are unremarkable except as noted in HPI and below Physical Exam Vital Signs: Last Vital Signs Pulse 79 05/26/24 10:43 BP 122/80 05/26/24 10:43 Pulse Ox 97 05/26/24 10:43 Oxygen Delivery Method Room Air 05/26/24 10:43 BMI result Body Mass Index 34.4 Const General: cooperative, healthy appearing and comfortable Orientation/consciousness: patient oriented x3 Limitations: crutches (Ambulating with 1 crutch) HEENT Head: Yes normal to inspection and Yes normocephalic General nose exam: Normal external nose present Face and sinus: Yes normal facial exam Eyes General: appearance normal, both eyes and all related structures Resp Effort & Inspection: normal respiratory effort and able to speak in complete sentences Back/Spine/Pelvis Cervical Spine: cervical ROM normal and No Cervical spine tenderness Thoracic/Lumbar Spine: thoracic and lumbar spine normal to inspection, pain with thoraco-lumbar ROM, paraspinal muscle tenderness on the right in the upper lumbar and in the mid lumbar, thoraco-lumbar ROM limited with lateral flexion to the right, with lateral flexion to the left and with rotation to the left, No thoracic spinal tenderness and No lumbar spinal tenderness Neuro General: patient oriented x3 Assessment & Plan Assessment & Plan (1) Acute on chronic low back pain: Code(s): M54.50 - Low back pain, unspecified; G89.29 - Other chronic pain Plan: We will get lumbar x-ray, sent diclofenac and cyclobenzaprine to patient's pharmacy, recommended he rest, take the meds prescribed and use ice. He could also use [id number] patches on his back with heating elements numbing elements and Voltaren gel. If no improvement slowly over the next couple of weeks, he should follow up with his PCP for possible physical therapy. Plan See above. Orders: Orders XR lumbar spine 6V w bending Today G89.29 - Other chronic pain, M54.50 - Low back pain, unspecified Medications: New cyclobenzaprine 5 mg PO Q8H PRN 15 tabs 0RF Muscle Spasm diclofenac sodium 50 mg PO TID PRN 30 tabs 0RF pain Coding Level of Care Code Est Pt Level 4 (74011) Diagnoses Acute on chronic low back pain M54.50; G89.29
[2024-05-26 10:43] VITALS: BP 122/80; PULSE 79; O2SAT 97; BMI 34.4
== END 2024-05-26 11:14 | disposition home or self-care (01) ==
PROVIDERS: PCP Nurse Practitioner Family; Visit Provider Physician Assistant
DX: M54.50 Low back pain, unspecified (principal); G89.29 Other chronic pain

== ENCOUNTER → 2024-05-26 09:53 | Outpatient (BNVA) | payer OTHER, SELFPAY | PROVIDERS: PCP Nurse Practitioner Family; Visit Provider Physician Assistant ==

== ENCOUNTER 2024-05-26 11:06 | Outpatient (REF) | payer OTHER, SELFPAY ==
--- NOTE | ~2024-05-26 | XR_ITS ---
EXAMINATION: XR LUMBOSACRAL SPINE CLINICAL INFORMATION: Low back pain COMPARISON: MRI lumbosacral spine January 2018 TECHNIQUE: 6 views of the lumbar spine, inclusive of flexion and extension views, were obtained. FINDINGS: The vertebral bodies and posterior elements are normal. The disc spaces are preserved and the vertebral alignment is normal. The paraspinal soft tissues are normal. XR/XR lumbar spine 6V w bending IMPRESSION: Unremarkable examination. Degenerative disc changes noted on prior MRI at the L4-L5 and L5-S1 levels are not conspicuous on x-ray Electronically signed by: Kp Miller MD 05/26/2024 04:04 PM EDT
== END 2024-05-26 11:07 | disposition home or self-care (01) ==
LOC: HO.HMGCX 11:06
PROVIDERS: PCP Nurse Practitioner Family; Visit Provider Physician Assistant
DX: M54.50 Low back pain, unspecified (principal); G89.29 Other chronic pain
CPT/HCPCS: 72114

== ENCOUNTER 2024-06-29 08:23 | Outpatient (AMB) | payer OTHER, SELFPAY ==
[2024-06-29 08:27] VITALS: BP 120/88; PULSE 92; O2SAT 96; BMI 36.1
--- NOTE | 2024-06-29 08:27 | MHC.PC.OV ---
Vital Signs 06/29/24 08:27 Height 6 ft Weight 266 lb BMI 36.1 BP 120/88 Blood Pressure Location Rt brachial Position Sitting Pulse 92 Pulse Source Pulse Oximeter Pulse Oximetry (%) 96 Oxygen Delivery Method Room Air Intake Visit Reasons: 6 mon f/u Allergies No Known Allergies Allergy (Verified 06/29/24 08:58) Medication List - Last Reconciled 06/29/24 by STEPHANIE CroweP- albuterol sulfate 90 mcg/actuation 2 puffs inhalation Q6H PRN Tobacco use date assessed: 06/29/24 Dental Screening Dental Screen Date: 06/29/24 Did you have a dental visit in the last 12 months?: Yes Did you have a dental problem in the last 6 months where you did not have access to dental care?: No Was dental information given to patient?: Patient has dentist HPI 6 mon f/u HPI Details History of Present Illness The patient is a 33-year-old male presenting with concerns of tingling sensations in the leg, consistent with Meralgia Paresthetica, in addition to a routine wellness examination. He reports the sensation of the leg falling asleep randomly without associated pain, which he initially noticed prior to a recent visit for leg pain. He describes these sensations as episodic and localized to a specific part of the leg, attributing them possibly to pinched nerves. No back pain is associated with this condition. These symptoms have not been exacerbated or alleviated significantly by any specific actions thus far. The patient did not report other accompanying symptoms such as chest pain, shortness of breath, or gastrointestinal disturbances. He has not sought recent medical intervention specific to this complaint before today's evaluation. 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 - He engages in an active lifestyle and acknowledges an intention for regular stretching exercises, although adherence is inconsistent. Review of Systems - Neurological: Reports episodic tingling sensation in the leg; denies associated back pain. - General: Denies fever, chills, shortness of breath, blood in stool, diarrhea, and constipation. Physical Exam General: Cooperative, healthy appearing, comfortable, no acute distress and well developed Orientation: Patient oriented x3 Limitations: No limitations Head: Normal to inspection Ears: Hearing grossly normal bilaterally Nose: Normal external nose present Face and sinus: Normal facial exam Eyes: Appearance normal, both eyes and all related structures Neck: Normal visual inspection and Yes full ROM Respiratory: Normal respiratory effort and able to speak in complete sentences. Clear to auscultation bilaterally Cardiovascular: Regular rate and rhythm. Normal S1 and S2 GI: Normal to inspection. Soft to palpation and nontender Skin: No rashes or lesions noted Neuro: Patient oriented x3. + sensation with palaption of RLE Results Plan - Meralgia Paresthetica: Advise anti-inflammatory medication and consistent stretching exercises to alleviate symptoms. Education provided on how to manage this condition. Follow-up care as necessary should symptoms persist or worsen. - Wellness Examination: Continue routine preventative care with recommendations for a healthy lifestyle, including regular physical activity and balanced nutrition. Patient was informed and verbally consented to the use of an ambient scribe for clinic note documentation during this visit. Discussion Notes I explained to the patient that the tingling sensation in his leg is likely due to Meralgia Paresthetica, a condition caused by compression of the lateral femoral cutaneous nerve. We discussed treatment options, including lifestyle modifications such as regular stretching and the use of anti-inflammatory medications. I emphasized the importance of maintaining a regular stretching regimen and reassured him that these symptoms typically resolve over time with conservative management. Follow-up was mentioned if the symptoms persist or worsen. We also reviewed his wellness examination results, noting his healthy status and normal physical examination findings today, and discussed the continuation of his current healthy lifestyle habits. Patient Instructions - Initiate a regimen of daily stretching and consider anti-inflammatory medications as needed for relief from leg sensations. - Maintain current lifestyle changes and continue to work towards transitioning to a construction role safely. - Return for follow-up if the tingling sensation worsens or persists. [facility] Medical History Gasping for breath Sleep apnea in adult Obesity (BMI 30-39.9) Social History Housing: House Patient Tobacco Use Status: Never used Tobacco e-Cigarette/Vaping Use: Never Used Second Hand Smoke Exposure: Yes service: No Current occupational status: employed Current occupation: truck loader overhead crane for [employer] Current occupational exposures/hazards: No Cognitive needs: No Hearing needs: No Vision needs: No Questionnaire PHQ-9 Over the last 2 weeks, how often have you been bothered by any of the following problems? 1. Little interest or pleasure in doing things: not at all 2. Feeling down, depressed, or hopeless: not at all 3. Trouble falling or staying asleep, or sleeping too much: not at all 4. Feeling tired or having little energy: not at all 5. Poor appetite or overeating: not at all 6. Feeling bad about yourself - or that you are a failure or have let yourself or your family down: not at all 7. Trouble concentrating on things, such as reading the newspaper or watching television: not at all 8. Moving or speaking so slowly that other people could have noticed. Or the opposite - being so fidgety or restless that you have been moving around a lot more than usual: not at all 9. Thoughts that you would be better off or of hurting yourself in some way: not at all Total score: 0 Depression Screening Interpretation: Negative Depression Screening Done: Yes 16476 - PHQ-9 Billing: Yes Source: Developed by Drs. Usman Washington, Shannon Mejía, Leonard Payton and colleagues, with an educational mahad from [employer]. Thrive Questionnaire Date Thrive assessed: 06/29/24 I am a: Patient What is your living situation today?: I have a steady place to live Within the past 12 months, did the food you bought not last and you didn't have the money to get more?: Never true Within the past 12 months, did you worry whether your food would run out before you got money to buy more?: Never true Do you have trouble paying for medicines?: No Do you have trouble getting transportation to medical appointments?: No Do you have trouble paying your heating and electricity bill?: No Do you have trouble taking care of your child, family member or friend?: No Do you have trouble with day-to-day activities such as bathing, preparing meals, shopping, managing finances, etc.?: No Are you currently unemployed and looking for a job?: No Are you interested in more education?: No Please select the resources that you would like help with: None Currently or been in a relationship where the following occur: No concerns reported THRIVE Score: 0 AUDIT C Alcohol Use Questionnaire (AUDIT-C) 1. How often do you have a drink containing alcohol?: Never 3. How often do you have six or more drinks on one occasion?: Never Total Score: 0 PURA-7 AMB Questionnaire PURA-7 Date PURA - 7 assessed: 06/29/24 Feeling nervous, anxious, or on edge: 0 = Not at all Not being able to stop or control worryin = Not at all Worrying too much about different things: 0 = Not at all Trouble relaxin = Not at all Being so restless that it is hard to sit still: 0 = Not at all Becoming easily annoyed or irritable: 0 = Not at all Feeling afraid as if something awful might happen: 0 = Not at all Total PURA-7 score (0-4 normal; 5-9 mild; 10-14 moderate; 15-21 severe): 0 Source: Developed by Drs. Usman Washington, Shannon Mejía, Leonard Payton and colleagues, with an educational mahad from [employer]. PURA-7 Assessment Billing PURA-7 Assessment Tool: PURA-7 Assessment 45890 Physical exam (Primary Care) Vital Signs: Last Vital Signs Pulse 92 06/29/24 08:27 BP 120/88 06/29/24 08:27 Pulse Ox 96 06/29/24 08:27 Oxygen Delivery Method Room Air 06/29/24 08:27 BMI result Body Mass Index 36.1 Tobacco/Smoking Status: Tobacco use Status Tobacco use date assessed 06/29/24 06/29/24 08:28 Patient Tobacco Use Status Never used Tobacco 06/29/24 08:28 e-Cigarette/Vaping Use Never Used 06/29/24 08:28 PHQ-9: PHQ-9 Score PHQ-9: Total score 0 06/29/24 08:33 Depression Screening Interpretation: Negative Thrive Assessment: Date of Thrive Assessment Date Thrive assessed 06/29/24 06/29/24 08:28 Currently or been in a relationship where the following occur: No concerns reported Coding Level of Care Code Est Pt Prev Care 18-39y(62084) Diagnoses Physical exam Z00.00 Meralgia paraesthetica G57.10 Additional Codes PURA-7 Assessment Billing - PURA-7 Assessment Tool: PURA-7 Assessment 45457 ([id number]) PHQ-9 - 70765 - PHQ-9 Billing: Yes ([id number]) Assessment & Plan Assessment & Plan (1) Physical exam: Code(s): Z00.00 - Encounter for general adult medical examination without abnormal findings Category: Medical (2) Meralgia paraesthetica: Code(s): G57.10 - Meralgia paresthetica, unspecified lower limb Category: Medical Plan . Orders: Orders Complete Blood Count Auto Diff Today Z00.00 - Encounter for general adult medical examination without abnormal findings Comprehensive [place]. Panel Fast Today Z00.00 - Encounter for general adult medical examination without abnormal findings UA CC w/rflx Micro + Cult Today Z00.00 - Encounter for general adult medical examination without abnormal findings TSH reflex Free T4 Today Z00.00 - Encounter for general adult medical examination without abnormal findings Lipid Panel Today Z00.00 - Encounter for general adult medical examination without abnormal findings
== END 2024-06-29 09:09 | disposition home or self-care (01) ==
PROVIDERS: PCP Nurse Practitioner Family; Visit Provider Nurse Practitioner Family
DX: Z00.00 Encounter for general adult medical examination without abnormal findings (principal); G57.10 Meralgia paresthetica, unspecified lower limb

== ENCOUNTER → 2024-06-29 08:23 | Outpatient (BNVA) | payer OTHER, SELFPAY | PROVIDERS: PCP Nurse Practitioner Family; Visit Provider Nurse Practitioner Family | DX: Z00.00 Encounter for general adult medical examination without abnormal findings (principal); G57.10 Meralgia paresthetica, unspecified lower limb | CPT/HCPCS: 96127 ==

== ENCOUNTER 2025-06-19 13:20 | Outpatient (AMB) | payer OTHER, SELFPAY ==
[2025-06-19 13:22] VITALS: BP 140/86; PULSE 82; O2SAT 98; BMI 35.7
--- NOTE | 2025-06-19 13:22 | MHC.OFFWIV ---
Intake Vital Signs 06/19/25 13:22 Height 6 ft Weight 263 lb BMI 35.7 BP 140/86 H Blood Pressure Location Lt brachial Position Sitting Pulse 82 Pulse Source Pulse Oximeter Pulse Oximetry (%) 98 Oxygen Delivery Method Room Air Intake Visit Reasons: EP workers comp back pain Intake Note: Patient presents c/o lower back pain related to lifting something up at work on thursday. Patient Tobacco Use Status: Never used Tobacco Allergies No Known Allergies Allergy (Verified 06/19/25 13:25) Do you need a note to return to daycare/school/sports/work: Yes HPI HPI Comments History of Present Illness Details History - The patient is a 34-year-old male presenting with acute lower back pain. - The pain began on Thursday after lifting a case at work, resulting in immediate discomfort. - The pain is described as sharp and burning, localized to the right side of the lower back, without radiation to the legs. - He was able to finish his work day but then he spent 40 hours on the cough due to pain. - He was barely able to get up and walk to the bathroom. - He was on his hands and knees and having to pull himself up. - No numbness, tingling, or loss of bowel or bladder control reported. - Current medications include cyclobenzaprine for muscle spasms, which has provided some relief. - He was feeling somewhat better today and wanted to go to work, but then pain came back. - He denies saddle anesthesia, dysuria, hematuria, CP, SOB, abd pain, or fall. - He has no previous back injury and he thinks this feels different. - He wants an x-ray and needs a note for work. Physical Exam General: cooperative, healthy appearing and comfortable, patient oriented x3 Head: Normal to inspection, normocephalic/atraumatic Effort & Inspection: Normal respiratory effort and able to speak in complete sentences. Cardiac: RRR, no M/R/G noted. Normal S1 and S2. Respiratory: Clear to auscultation bilaterally. No w/r/r noted. Back/spine: No CVA tenderness bilaterally. Cervical, thoracic and lumbar spine normal to inspection. Cervical ROM normal, no midline spinous tenderness noted. Thoracic ROM normal, lumbar ROM normal. No midline vertebral spinous tenderness noted in the thoracic region. TTP of the L4-5 lumbar spinous processes. No step offs noted. No TTP of the thoracic or lumbar paraspinous or paravertebral muscles. No SI joint tenderness noted. DTR are 2+ on the lower extremities noted. Ambulates with a steady gait. Extremities: Straight leg raise test positive on the right; Straight leg raise test negative on the left; motor strength normal 5/5 bilaterally. Neuro: Sensation intact. No numbness down the legs or into the groin. Patient was informed and verbally consented to the use of an ambient scribe for clinic note documentation during this visit. [facility] Medical History (Reviewed 06/29/24 @ 08:58 by STEPHANIE CroweWASHINGTON [facility]) Gasping for breath Sleep apnea in adult Obesity (BMI 30-39.9) Social History Housing: House Patient Tobacco Use Status: Never used Tobacco e-Cigarette/Vaping Use: Never Used Second Hand Smoke Exposure: Yes service: No Current occupational status: employed Current occupation: tractor trailer truck driver for [employer] Current occupational exposures/hazards: No Cognitive needs: No Hearing needs: No Vision needs: No Review of Systems Const All systems reviewed & are unremarkable except as noted in HPI and below Physical Exam Vital Signs: Last Vital Signs Pulse 82 06/19/25 13:22 BP 140/86 H 06/19/25 13:22 Pulse Ox 98 06/19/25 13:22 Oxygen Delivery Method Room Air 06/19/25 13:22 BMI result Body Mass Index 35.7 Assessment & Plan Assessment & Plan (1) Lower back pain: Code(s): M54.50 - Low back pain, unspecified Qualifiers: Chronicity: acute Back pain laterality: right Sciatica presence: without sciatica Qualified Code(s): M54.50 - Low back pain, unspecified Plan Most likely spasm vs strain vs disc herniation vs radiculopathy Plan - Prescribe cyclobenzaprine 5 mg for muscle spasms, to be taken as needed. - Initiate a 5-day course of prednisone to reduce inflammation and alleviate pain. - Will order an x-ray of the lumbar spine to assess for any structural abnormalities per patient request. - Advise rest and avoidance of heavy lifting until symptoms improve. - Provide a work note for two days off to allow for recovery and reassessment of symptoms. - will need to f/u with PCP if pain persists Orders: Orders XR lumbar spine 2-3V Today M54.50 - Low back pain, unspecified Medications: New cyclobenzaprine 5 mg PO Q8H PRN 20 tabs 0RF Muscle Spasm meloxicam 15 mg PO DAILY 15 tabs 0RF prednisone 40 mg (2 x 20 mg) PO DAILY 10 tabs 0RF 5 days Coding Level of Care Code Est Pt Level 4 (36096) Diagnoses Acute right-sided low back pain without sciatica M54.50 Chronicity: acute Back pain laterality: right Sciatica presence: without sciatica
== END 2025-06-19 14:08 | disposition home or self-care (01) ==
PROVIDERS: PCP Nurse Practitioner Family; Visit Provider Physician Assistant Medical
DX: M54.50 Low back pain, unspecified (principal)

== ENCOUNTER 2025-06-19 13:20 | Outpatient (REF) | payer OTHER, SELFPAY ==
--- NOTE | ~2025-06-19 | XR_ITS ---
EXAMINATION: XR LUMBOSACRAL SPINE CLINICAL INFORMATION: M54.50 - Low back pain, unspecified COMPARISON: May 26, 2024. TECHNIQUE: AP and lateral views. FINDINGS: No acute cortical disruption or malalignment. Loss of the physiologic lumbar lordosis. No lytic or blastic lesions. XR/XR lumbar spine 2-3V IMPRESSION: Loss of the physiologic lumbar lordosis which could be positional. Electronically signed by: Juvenal Keene MD 06/19/2025 02:41 PM EST
== END 2025-06-19 13:21 | disposition home or self-care (01) ==
LOC: HO.HMGCX 13:20
PROVIDERS: PCP Nurse Practitioner Family; Visit Provider Physician Assistant Medical
DX: M54.50 Low back pain, unspecified (principal)
CPT/HCPCS: 72100; 99212

== ENCOUNTER → 2025-06-19 14:04 | Outpatient (BNV) | payer OTHER, SELFPAY | PROVIDERS: PCP Nurse Practitioner Family; Visit Provider Radiology Diagnostic Radiology | DX: M40.56 Lordosis, unspecified, lumbar region (principal) | CPT/HCPCS: 72100 ==

== ENCOUNTER 2025-07-03 08:30 | Outpatient (AMB) | payer OTHER, SELFPAY ==
[2025-07-03 08:38] VITALS: BP 132/86; PULSE 81; O2SAT 97; BMI 36.1
--- NOTE | 2025-07-03 08:38 | MHC.PC.OV ---
Vital Signs 07/03/25 08:38 Height 6 ft Weight 266 lb BMI 36.1 BP 132/86 Blood Pressure Location Lt brachial Position Sitting Pulse 81 Pulse Source Pulse Oximeter Pulse Oximetry (%) 97 Intake Visit Reasons: followup Allergies No Known Allergies Allergy (Verified 07/03/25 08:38) Medication List - Last Reconciled 07/03/25 by Luis Fernando Ruffin NAILHEAD SETTER-BC cyclobenzaprine 5 mg PO BEDTIME PRN 30 days meloxicam 7.5 mg PO DAILY 30 days Tobacco use date assessed: 07/03/25 Dental Screening Dental Screen Date: 07/03/25 Did you have a dental visit in the last 12 months?: Yes Did you have a dental problem in the last 6 months where you did not have access to dental care?: No Was dental information given to patient?: Patient has dentist HPI followup HPI Details Chief Complaint The patient presents for a follow-up visit for low back pain related to a work injury. History of Present Illness The patient is a 34 year old individual presenting for a worker's compensation follow-up for a low back injury that occurred on June 16, 2025, while lifting something. The pain is located mostly on the right side of the lower back, and the patient denies any radicular symptoms. The patient was seen at a walk-in clinic around June 19 and was treated with prednisone followed by meloxicam and a muscle relaxer, which provided some help. The patient reports the back is slowly getting better and now feels more tight. The patient has been continuing to stretch. Social History - Employment: The patient's visit is for a worker's compensation follow-up regarding a lower back injury. Health Maintenance - The patient is advised to continue stretching at home. Review of Systems - Musculoskeletal: Reports right-sided low back pain and tightness. - Neurological: Denies radicular symptoms. Physical Exam General: Cooperative, healthy appearing, comfortable, no acute distress and well developed Orientation: Patient oriented x3 Limitations: No limitations Head: Normal to inspection Ears: Hearing grossly normal bilaterally Nose: Normal external nose present Face and sinus: Normal facial exam Eyes: Appearance normal, both eyes and all related structures Neck: Normal visual inspection and Yes full ROM Respiratory: Normal respiratory effort and able to speak in complete sentences. Clear to auscultation bilaterally Cardiovascular: Regular rate and rhythm. Normal S1 and S2 GI: Normal to inspection. Soft to palpation and nontender Skin: No rashes or lesions noted Neuro: Patient oriented x3 Extremities: Normal to inspection, with heel and toe walking, there was some tightness reported in the lower back, no pain with palpation. Neg straight leg raises Results Plan 1. Low Back Pain The patient presents for a worker's compensation follow-up for right-sided low back pain which is slowly improving and is now characterized more by tightness. There are no signs of cauda equina or radiculopathy. The plan is to continue with stretching exercises at home and to initiate physical therapy. A telehealth follow-up is scheduled in approximately one month. continue NSAIDS and muscle relaxors PRN Discussion Notes I have discussed with the patient that the patient's low back pain is improving. I recommended that the patient continue stretching at home and referred the patient to physical therapy. We will follow up via telehealth in about one month to monitor progress. Patient Instructions - Please continue your stretching exercises at home. - We will be referring you to physical therapy to help with your back. - Schedule a telehealth follow-up appointment in about one month to check on your progress. [facility] Medical History Gasping for breath Sleep apnea in adult Obesity (BMI 30-39.9) Social History Housing: House Patient Tobacco Use Status: Never used Tobacco e-Cigarette/Vaping Use: Never Used Second Hand Smoke Exposure: Yes service: No Current occupational status: employed Current occupation: regional tanker truck driver for [employer] Current occupational exposures/hazards: No Cognitive needs: No Hearing needs: No Vision needs: No Questionnaire PHQ-9 Over the last 2 weeks, how often have you been bothered by any of the following problems? 1. Little interest or pleasure in doing things: not at all 2. Feeling down, depressed, or hopeless: not at all 3. Trouble falling or staying asleep, or sleeping too much: not at all 4. Feeling tired or having little energy: not at all 5. Poor appetite or overeating: not at all 6. Feeling bad about yourself - or that you are a failure or have let yourself or your family down: not at all 7. Trouble concentrating on things, such as reading the newspaper or watching television: not at all 8. Moving or speaking so slowly that other people could have noticed. Or the opposite - being so fidgety or restless that you have been moving around a lot more than usual: not at all 9. Thoughts that you would be better off or of hurting yourself in some way: not at all Total score: 0 Depression Screening Interpretation: Negative Depression Screening Done: Yes 77045 - PHQ-9 Billing: Yes Source: Developed by Drs. Usman Washington, Shannon Mejía, Leonard Payton and colleagues, with an educational mahad from [employer]. Thrive Questionnaire Date Thrive assessed: 06/26/25 I am a: Patient What is your living situation today?: I have a steady place to live Within the past 12 months, did the food you bought not last and you didn't have the money to get more?: Often true Within the past 12 months, did you worry whether your food would run out before you got money to buy more?: Never true Do you have trouble paying for medicines?: No Do you have trouble getting transportation to medical appointments?: No Do you have trouble paying your heating and electricity bill?: No Do you have trouble taking care of your child, family member or friend?: No Do you have trouble with day-to-day activities such as bathing, preparing meals, shopping, managing finances, etc.?: No Are you currently unemployed and looking for a job?: No Are you interested in more education?: No Please select the resources that you would like help with: None Currently or been in a relationship where the following occur: No concerns reported THRIVE Score: 1 AUDIT C Alcohol Use Questionnaire (AUDIT-C) 1. How often do you have a drink containing alcohol?: Never 3. How often do you have six or more drinks on one occasion?: Never Total Score: 0 Score Reviewed/Action Taken: Yes PURA-7 AMB Questionnaire PURA-7 Date PURA - 7 assessed: 07/03/25 Feeling nervous, anxious, or on edge: 0 = Not at all Not being able to stop or control worryin = Not at all Worrying too much about different things: 0 = Not at all Trouble relaxin = Not at all Being so restless that it is hard to sit still: 0 = Not at all Becoming easily annoyed or irritable: 0 = Not at all Feeling afraid as if something awful might happen: 0 = Not at all Total PURA-7 score (0-4 normal; 5-9 mild; 10-14 moderate; 15-21 severe): 0 Source: Developed by Drs. Usman Washington, Shannon Mejía, Leonard Payton and colleagues, with an educational mahad from [employer]. PURA-7 Assessment Billing PURA-7 Assessment Tool: PURA-7 Assessment 29281 Physical exam (Primary Care) Vital Signs: Last Vital Signs Pulse 81 07/03/25 08:38 BP 132/86 07/03/25 08:38 Pulse Ox 97 07/03/25 08:38 BMI result Body Mass Index 36.1 Tobacco/Smoking Status: Tobacco use Status Tobacco use date assessed 07/03/25 07/03/25 08:39 Patient Tobacco Use Status Never used Tobacco 07/03/25 08:39 e-Cigarette/Vaping Use Never Used 07/03/25 08:39 PHQ-9: PHQ-9 Score PHQ-9: Total score 0 07/03/25 08:39 Depression Screening Interpretation: Negative Thrive Assessment: Date of Thrive Assessment Date Thrive assessed 06/26/25 07/03/25 08:39 Currently or been in a relationship where the following occur: No concerns reported Coding Level of Care Code Est Pt Level 3 (28065) Diagnoses Acute right-sided low back pain without sciatica M54.50 Chronicity: acute Back pain laterality: right Sciatica presence: without sciatica Additional Codes PURA-7 Assessment Billing - PURA-7 Assessment Tool: PURA-7 Assessment 77782 ([id number]) PHQ-9 - 88411 - PHQ-9 Billing: Yes ([id number]) Assessment & Plan Assessment & Plan (1) Lower back pain: Code(s): M54.50 - Low back pain, unspecified Category: Medical Qualifiers: Chronicity: acute Back pain laterality: right Sciatica presence: without sciatica Qualified Code(s): M54.50 - Low back pain, unspecified Plan . Orders: Orders PT Evaluation and Treatment Today M54.50 - Low back pain, unspecified Medications: New meloxicam 7.5 mg PO DAILY 30 tabs 0RF 30 days cyclobenzaprine 5 mg PO BEDTIME PRN 30 tabs 0RF muscle spasm 30 days
--- OUTSIDE RECORDS SUMMARY | 2025-07-03 08:52 | XMS_ITS | Clinical Summary ---
Author Organization [facility] Address [address] [place] [address] Care Team Providers Care Cloth Stock Sorter Name Role Phone Unavailable Primary Care Provider Unavailabl e Social History Tobacco Use Types Packs/Day Years Used Date Smoking Tobacco: Never Assessed Sex and Gender Information Value Date Recorded Sex Assigned at Not on file Legal Sex Male 11:28 PM EDT Gender Identity Not on file Sexual Orientation Not on file Plan of Treatment Health Maintenance Due Date Last Done Comments Hepatitis C Virus Screening 1991 HIV Screening 10/09/2004 DTaP/Tdap/Td Vaccines (1 - Tdap) 10/09/2010 Hepatitis B Vaccines (1 of 3 - 19+ 3-dose series) 10/09/2010 COVID-19 Vaccine ( - 2023-2 5 season) 2025 HPV Vaccines (No Doses Required) Completed Pneumococcal Vaccine: Pediat kamran (0-5 Years) and At-Risk Patients (6 to 49 Years) Aged Out No longer eligible b ased on patient's age to complete this topic
--- OUTSIDE RECORDS SUMMARY | 2025-07-03 08:52 | XMS_ITS | Encounter Summary ---
Author Organization [employer] Address [address] [facility] [address] [place] [address] Care Team Providers Care Jet Aircraft Servicer Name Role Phone Unavailable Primary Care Provider Unavailabl e Reason for Visit * Reason Onset Date Comments referrals 11/06/2022 Encounter Details Date Type Department Care Team (Late st Contact Info) Description 11/06/2022 Telephone [facility] [address] [place] [address] Ulisses Wilkerson, DMD [address] [place] [address] referrals Social History Tobacco Use Types Packs/Day Years Used Date Smoking Tobacco: Never Smokeless Tobacco: Never Alcohol Use Standard Drinks/Week Comments Yes 0 (1 standard drink = 0.6 oz pur e alcohol) Comments Unknown Sex and Gender Information Value Date Recorded Sex Assigned at Unknown 10/30/2022 8:46 AM EDT Legal Sex Male 8:38 AM EDT Gender Identity Male 10/30/2022 8:46 AM EDT Sexual Orientation Don't know 10/30/2022 8: 46 AM EDT COVID-19 Exposure Response Date Recorded In the last 10 days, have yo u been in contact with someone who was confirmed or suspected to have Coronavirus/COVID-19? No / Unsure 10/30/2022 12:02 PM EDT documented as of this encounter Miscellaneous Notes * Telephone Encounter - Roxana Hector - 11/06/2022 9:18 AM EDT Patient stated that he received some referrals from provider and doesn't have them on hand and wants to call the other offices as well. I don't see them scanned unless I'm missing something. He'd like the names of where he was referred. documented in this encounter Plan of Treatment Not on file documented as of this encounter Visit Diagnoses Not on filedocumented in this encounter
--- OUTSIDE RECORDS SUMMARY | 2025-07-03 08:52 | XMS_ITS | Clinical Summary ---
Author Organization [employer] Address [address] [facility] [address] [place] [address] Care Team Providers Care Food And Beverage Assistant Manager Name Role Phone Unavailable Primary Care Provider Unavailabl e Allergies No known active allergies Medications No known medications Social History Tobacco Use Types Packs/Day Years Used Date Smoking Tobacco: Never Smokeless Tobacco: Never Tobacco Cessation:Counseling Given: Not Answered Alcohol Use Standard Drinks/Week Comments Yes 0 (1 standard drink = 0.6 oz pur e alcohol) Comments Unknown Sex and Gender Information Value Date Recorded Sex Assigned at Unknown 10/30/2022 8:46 AM EDT Legal Sex Male 8:38 AM EDT Gender Identity Male 10/30/2022 8:46 AM EDT Sexual Orientation Don't know 10/30/2022 8: 46 AM EDT Plan of Treatment Health Maintenance Due Date Last Done Comments Dental Oral Exam 1991 Dental Prophylaxis 1991 Dental X-Ray: Bitewings 1991 Dental X-Ray: Full Mouth 1991 Depression Screening 1991 HIV Screening 1991 SDOH Screening 1991 Disability Screening 1991 Alcohol/Substance Use Screening 2003 Family Planning (PISQ) 10/09/2006 HPV Vaccines (1 - 3-dose series) 10/09/2006 Hepatitis C Screening 10/09/2009 Hepatitis A Vaccines (1 of 2 - Risk 2-dose series) 10/09/2010 DTaP/Tdap/Td Vaccines (7 - Td or Tdap) 07/11/2018 07/11/2008, 06/27/2003, 12/16/1996, Additional history exists Tobacco Screening 10/31/2023 10/30/2022 COVID-19 Vaccine (1 - 2024- season) 2025 Influenza Vaccine (#1) 2025 6, 04/04/2010, 09/05/2009 Zoster Vaccines (1 of 2) 10/09/2041 RSV Patients and Patients Aged 60 years or older (1 - 1-dose 75+ series) 10/09/2066 HIB Vaccines Completed 09/11/1993, 04/03, 02/17/1992, Additional history exists Hepatitis B Vaccines Completed 12/06/1996, 06/20/1996, 03/16/1996 IPV Vaccines Completed 02/16/1997, 01/1997, 09/11/1993, Additional history exists Meningococcal Vaccine Completed 07/11/2008 Meningococcal B Vaccine Aged Out No l onger eligible based on patient's age to complete this topic Pneumococcal Vaccine: Pediatrics (0 to 5 Years) and At-Risk Patients (6 to 49) Years Aged Out No longer eligible based on patient's age to complete this topic RSV under 20 months Aged Out No longe r eligible based on patient's age to complete this topic Rotavirus Vaccines Aged Out No longer eligible based on patient's age to complete this topic Insurance [facility] C3 DENTAL-[facility] MEDICAID STAND ADULT
--- OUTSIDE RECORDS SUMMARY | 2025-07-03 08:53 | XMS_ITS | Encounter Summary ---
Author Organization [facility] Address [address] [place] [address] Phone Care Team Providers Care Spinner Fixer Name Role Phone Jevon Childs MD Primary Care Provider [phone] Encounter Details Date Type Department Care Team (Late st Contact Info) Description 03/19/2017 Conversion Encounter [facility] [place] [address] [place] [address] Social History Tobacco Use Types Packs/Day Years Used Date Smoking Tobacco: Never Assessed Sex and Gender Information Value Date Recorded Sex Assigned at Not on file Legal Sex Male 4:30 PM EDT Gender Identity Not on file Sexual Orientation Not on file documented as of this encounter Plan of Treatment Not on file documented as of this encounter Visit Diagnoses Not on filedocumented in this encounter Care Teams Spinner Fixer Relationship Specialty Start Date End Date Jevon Childs MD [address] [place] [address] PCP - General 03/13/17 01/01/23 documented as of this encounter
--- OUTSIDE RECORDS SUMMARY | 2025-07-03 08:53 | XMS_ITS | Clinical Summary ---
Author Organization [facility] Address [address] [place] [phone] Phone Care Team Providers Care Architect Naval Name Role Phone Unavailable Primary Care Provider Unavailabl e Immunizations Immunization Administration Dates Next Due DTP 12/16/1996, 7,09/11/1993,04/20,02/17/1992,1991 H1N1 09/05/2009 Hep B, ped/adol 12/06/1996,06/20/1996,03/16/1996 Hib (PRP-T) 09/11/1993, 2,02/17/1992,12/15 Influenza Split 04/04/2010 MMR 02/03/1996,09/11/1993 Meningococcal Conj (Menactra) MCV4P 07/11/2008 OPV 02/16/1997, 7,09/11/1993,12/15 Td (adult) (MBL), 2 Lf tetan us toxoid, PF, adsorbed 06/27/2003 Tdap 07/11/2008 Family History Relation Name Status Comments Brother 1 Alive Brother: Alive and well, Alive and well, Alive and well Brother 2 Alive Brother: Alive and well, Alive and well, Alive and well Brother 3 Alive Brother: Alive and well, Alive and well, Alive and well Mother Alive Mother: Alive a nd well Social History Tobacco Use Types Packs/Day Years Used Date Smoking Tobacco: Never Assessed Sex and Gender Information Value Date Recorded Sex Assigned at Not on file Legal Sex Male 4:30 PM EDT Gender Identity Not on file Sexual Orientation Not on file Last Filed Vital Signs Vital Sign Reading Time Taken Comments Blood Pressure 112/70 04/04/2010 12:00 AM EDT Pulse - - Temperature 36 C (96.8 F) 10/31/2009 12:00 AM EDT Respiratory Rate - - Oxygen Saturation - - Inhaled Oxygen Concentration - - Weight 83 kg (183 lb) 04/04/2010 12:00 AM EDT Height 181.6 cm (5' 11.5 ) 04/04/2010 12:00 AM E DT Body Mass Index 25.17 04/04/2010 12:00 AM EDT Plan of Treatment Health Maintenance Due Date Last Done Comments Varicella Vaccines (1 of 2 - 13+ 2-dose series) 10/09/2004 DTaP,Tdap,and Td Vaccines (7 - Td or Tdap) 07/11/2018 07/11/2008, 06/27/2003, 12/16/1996, Additional history exists HPV Vaccines (1 - 3-dose SCDM series) 10/09/2018 Influenza Vaccines (#1) 2025 04/04/2010 COVID-19 Vaccine (2024- season) 2025 HIB Vaccines Completed 09/11/1993, 04/03, 02/17/1992, Additional history exists MMR Vaccines Completed 02/03/1996, 09/11/1993 Hepatitis B Vaccines Completed 12/06/1996, 06/20/1996, 03/16/1996 IPV Vaccines Completed 02/16/1997, 01/1997, 09/11/1993, Additional history exists Meningococcal Vaccine Completed 07/11/2008 Hepatitis A Vaccines Aged Out No long er eligible based on patient's age to complete this topic Men B Vaccine Aged Out No longer elig ible based on patient's age to complete this topic Pneumococcal Vaccine Aged Out No long er eligible based on patient's age to complete this topic
== END 2025-07-03 09:10 | disposition home or self-care (01) ==
LOC: HO.HMCC 08:31
PROVIDERS: PCP Nurse Practitioner Family; Visit Provider Nurse Practitioner Family
DX: M54.50 Low back pain, unspecified (principal)

== ENCOUNTER → 2025-07-03 08:30 | Outpatient (BNVA) | payer OTHER, SELFPAY | PROVIDERS: PCP Nurse Practitioner Family; Visit Provider Nurse Practitioner Family | DX: M54.50 Low back pain, unspecified (principal); E66.9 Obesity, unspecified; Z68.36 Body mass index [BMI] 36.0-36.9, adult | CPT/HCPCS: 96127 ==

== ENCOUNTER 2025-08-01 06:58 | Outpatient (AMB) | payer OTHER, SELFPAY ==
--- NOTE | 2025-08-01 07:50 | A.OFFPC_ITS ---
Intake Visit Reasons: Followup Android Allergies No Known Allergies Allergy (Verified 07/03/25 08:38) Tobacco use date assessed: 07/03/25 Dental Screening Dental Screen Date: 07/03/25 HPI Followup Android HPI Details History of Present Illness The patient is a 34 year old male presenting for a telehealth follow-up visit for a work-related lower back injury that began in mid-June. He reports persistent tightness and tenderness in his lower transverse back, which is exacerbated in the mornings and after prolonged periods of sitting. Symptoms of cauda equina are denied. A prior lumbar spine X-ray was negative for any acute findings. Pain is slowly getting better. Review of Systems - Musculoskeletal: Reports tightness and tenderness in the lower back. - Neurological: Denies symptoms of cauda equina syndrome. Plan 1. Low Back Pain The patient's lower back tightness is considered typical for his injury, with possible scar tissue formation. A lumbar X-ray was negative for acute pathology. The plan is to continue meloxicam and cyclobenzaprine, initiate daily stretching, and refer him to physical therapy. He will remain out of work for at least another month, with a telehealth follow-up scheduled in one month. Discussion Notes I explained to the patient that his symptoms of tightness and tenderness are likely muscular in nature and typical for his type of injury, with a possibility of some scar tissue being present. I informed him that his recent lumbar X-ray was negative for any acute issues. We discussed the plan to continue his medications, meloxicam and cyclobenzaprine, and to incorporate daily stretching. I am placing a referral for physical therapy to further aid in his recovery. I will keep him out of work for another month, and we will reconvene via telehealth in one month to assess his progress. Patient Instructions - Continue taking your current medicatio ns, meloxicam and cyclobenzaprine, as prescribed. - Begin a daily stretching routine for y our lower back. - We will arrange for you to start physi tana therapy. - You will remain out of work for at [facility] one more month. - Please schedule a follow-up telehealth appointment with me in one month. [facility] Medical History Gasping for breath Sleep apnea in adult Obesity (BMI 30-39.9) Social History Housing: House Patient Tobacco Use Status: Never used Tobacco e-Cigarette/Vaping Use: Never Used Second Hand Smoke Exposure: Yes service: No Current occupational status: employed Current occupation: box truck washer for [employer] Current occupational exposures/hazards: No Cognitive needs: No Hearing needs: No Vision needs: No Questionnaire Thrive Questionnaire Date Thrive assessed: 06/26/25 PURA-7 AMB Questionnaire PURA-7 Date PURA - 7 assessed: 07/03/25 Source: Developed by Drs. Usman Washington, Shannon Mejía, Leonard Payton and colleagues, with an educational mahad from [employer]. Physical exam (Primary Care) Tobacco/Smoking Status: Tobacco use Status Tobacco use date assessed 07/03/25 07/03/25 08:39 Patient Tobacco Use Status Never used Tobacco 07/03/25 08:39 e-Cigarette/Vaping Use Never Used 07/03/25 08:39 Thrive Assessment: Date of Thrive Assessment Date Thrive assessed 06/26/25 07/03/25 08:39 Telehealth Telehealth Telehealth Platform: [facility] Location of provider rendering services: practice address Location of patient: address on file Patient Identification confirmed using: Name, : Yes Telehealth method: video Patient verbally consented to treatment: Yes Patient verbally consented to billing insurance company: Yes Patient informed of any privacy concerns related to visit: Yes Minutes spent on Phone/Video with Pt.: 12 Coding Level of Care Code Tele Est Pt Level 3 (53170) Diagnoses Acute right-sided low back pain without sciatica M54.50 Chronicity: acute Back pain laterality: right Sciatica presence: without sciatica Assessment & Plan Assessment & Plan (1) Lower back pain: Code(s): M54.50 - Low back pain, unspecified Category: Medical Qualifiers: Chronicity: acute Back pain laterality: right Sciatica presence: without sciatica Qualified Code(s): M54.50 - Low back pain, unspecified Plan . Medications: Refilled cyclobenzaprine 5 mg PO BEDTIME PRN 30 tabs 0RF muscle spasm 30 days meloxicam 7.5 mg PO DAILY 30 tabs 0RF 30 days
--- OUTSIDE RECORDS SUMMARY | 2025-08-01 08:42 | XMS_ITS | Encounter Summary ---
Author Organization [facility] Address [address] [place] [address] Phone Care Team Providers Care Apparel Rental Clerk Name Role Phone Jevon Childs MD Primary Care Provider [phone] Encounter Details Date Type Department Care Team (Late st Contact Info) Description 03/19/2017 Conversion Encounter [facility] [place] [address] [place] [address] Social History Tobacco Use Types Packs/Day Years [...] on filedocumented in this encounter Care Teams Apparel Rental Clerk Relationship Specialty Start Date End Date Jevon Childs MD [address] [place] [address] PCP - General 03/13/17 01/01/23 documented as of this encounter
--- OUTSIDE RECORDS SUMMARY | 2025-08-01 08:42 | XMS_ITS | Clinical Summary ---
Author Organization [facility] Address [address] [place] [address] Care Team Providers Care Anesthesiology Medical Doctor Name Role Phone Unavailable Primary Care Provider [...] 3-dose series) 10/09/2010 COVID-19 Vaccine ( - 2024-2 6 season) 2025 HPV Vaccines (No Doses Required) Completed Pneumococcal Vaccine: Pediat kamran (0-5 Years) and At-Risk Patients (6 to 49 Years) Aged Out No longer eligible b ased on patient's age to complete this topic
--- OUTSIDE RECORDS SUMMARY | 2025-08-01 08:42 | XMS_ITS | Clinical Summary ---
Author Organization [facility] Address [address] [place] [phone] Phone Care Team Providers Care Fret Saw Operator Name Role Phone Unavailable Primary Care Provider [...]
--- OUTSIDE RECORDS SUMMARY | 2025-08-01 08:42 | XMS_ITS | Encounter Summary ---
Author Organization [employer] Address [address] [facility] [address] [place] [address] Care Team Providers Care Tie Tamper Name Role Phone Unavailable Primary Care Provider Unavailabl e Reason for Visit * Reason Onset Date Comments referrals 11/06/2022 Encounter Details Date Type Department Care Team (Late st Contact Info) Description 11/06/2022 Telephone [facility] [address] [place] [address] Ulisses Wilkerson, DMD [address] [place] [address] referrals Social History Tobacco Use Types Packs/Day [...]
--- OUTSIDE RECORDS SUMMARY | 2025-08-01 08:42 | XMS_ITS | Clinical Summary ---
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
== END 2025-08-01 08:05 | disposition home or self-care (01) ==
LOC: HO.HMCC 06:58
PROVIDERS: PCP Nurse Practitioner Family; Visit Provider Nurse Practitioner Family
DX: M54.50 Low back pain, unspecified (principal)